=== PATIENT | male | born 1960 | race American Indian/Alaskan Native ===

== ENCOUNTER 2017-12-08 23:15 | Emergency (ER) | payer OTHER ==
[2017-12-09] MEDS ORDERED: MOTRIN PO ONE (01:18)
--- NOTE | 2017-12-09 01:58 | XRay Report ---
FINAL REPORT EXAM: XR SPINE CERVICAL 2-3V HISTORY: neck pain TECHNIQUE: Four views of the cervical spine were submitted. FINDINGS: There is mild narrowing of the C2-C3 disc. The remaining disc heights and alignment appear normal. The prevertebral soft tissues and C1-C2 articulation appear intact. IMPRESSION: Mild narrowing of the C2-C3 disc. Otherwise unremarkable exam.
--- NOTE | 2017-12-09 02:01 | XRay Report ---
FINAL REPORT EXAM: XR SPINE LUMBOSACRAL 2-3V HISTORY: low back pain TECHNIQUE: Four images were obtained of the lumbar spine. FINDINGS: The disc heights and alignment appear normal. There is no evidence of fracture. The SI joints appear normal. The soft tissues are unremarkable. IMPRESSION: Within normal limits.
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
[2017-12-09 02:34] VITALS: BP 129/82
== END 2017-12-09 02:34 | disposition home or self-care (01) ==
LOC: ED 23:15
DX: S39.012A Strain of muscle, fascia and tendon of lower back, initial encounter (principal); S13.4XXA Sprain of ligaments of cervical spine, initial encounter; I10 Essential (primary) hypertension; E11.9 Type 2 diabetes mellitus without complications; V89.2XXA Person injured in unspecified motor-vehicle accident, traffic, initial encounter; Y93.89 Activity, other specified; Y92.89 Other specified places as the place of occurrence of the external cause; Y99.8 Other external cause status
CPT/HCPCS: 72040; 72100; 99283

== ENCOUNTER 2018-04-28 11:56 | Emergency (ER) | payer MEDICARE, OTHER ==
--- NOTE | 2018-04-28 12:57 | Emergency Department Report ---
Chief Complaint: Urogenital-Male Stated Complaint: KIDNEY CHECK UP Time Seen by Provider: 04/28/18 12:56 - HPI History of Present Illness: pt co abd pain no sob no cp vss MSE completed - Exam Vital Signs: Vital Signs 04/28/18 11:59 Temperature 97.7 F Pulse Rate 66 Respiratory 18 Rate Blood Pressure 151/70 O2 Sat by Pulse 100 Oximetry MSE screening note: Focused history and physical exam performed. Due to findings the following was ordered: ED Disposition for MSE Condition: Stable
[2018-04-28 13:24] LABS: Hematocrit 29.4 % (35.5-45.6); Hemoglobin 9.6 gm/dl (11.8-15.2); Mean Corpuscular HGB Conc 33 % (32-34); Mean Corpuscular Volume 94 fl (84-94); Platelet Count 136 K/mm3 (140-440); Red Blood Count 3.13 M/mm3 (3.65-5.03); Red Cell Distribution Width 15.5 % (13.2-15.2)
[2018-04-28 13:32] LABS: Bacteria,Urine 1+ /HPF (Negative); WBC,Urine < 1.0 /HPF (0.0-6.0)
[2018-04-28 13:40] LABS: Bilirubin,Urine NEG (Negative); Blood,Urine NEG (Negative); Color,Urine Straw (Yellow); Urobilinogen,Urine < 2.0 mg/dL (<2.0)
[2018-04-28 13:49] LABS: Albumin 3.8 g/dL (3.9-5); Calcium 7.5 mg/dL (8.4-10.2)
[2018-04-28] MEDS ORDERED: KIONEX PO ONE (13:54)
--- NOTE | 2018-04-28 14:49 | Emergency Department Report ---
ED General Adult HPI - General Chief complaint: Urogenital-Male Stated complaint: KIDNEY CHECK UP Time Seen by Provider: 04/28/18 12:56 Source: patient Mode of arrival: Ambulatory Limitations: No Limitations - History of Present Illness Initial comments: 57 year old male with a past medical history diabetes, hypertension, obesity, and renal insufficiency presents to the hospital requesting a second opinion about his need for dialysis. Patient saw his primary care doctor in 3-4 months ago told that he will likely need dialysis. He apparently has an appointment scheduled this week upcoming week with his primary care doctor with plan fixture relamper referral. Patient is seeking a second opinion. He does not have any chest pain, shortness of breath, leg edema, has good urine output. Severity scale (0 -10): 0 - Related Data Previous Rx's Medication Instructions Recorded Last Taken Type Cyclobenzaprine [Flexeril] 10 mg PO QHS PRN #10 tablet 12/09/17 Unknown Rx Ibuprofen [Motrin] 600 mg PO Q8H PRN #30 tablet 12/09/17 Unknown Rx Allergies Allergy/AdvReac Type Severity Reaction Status Date / Time No Known Allergies Allergy Verified 04/28/18 11:58 ED Review of Systems ROS: Stated complaint: KIDNEY CHECK UP Other details as noted in HPI Comment: All other systems reviewed and negative ED Past Medical Hx - Past Medical History Hx Hypertension: Yes Hx Diabetes: Yes - Surgical History Additional Surgical History: right foot - Social History Smoking Status: Never Smoker Substance Use Type: None - Medications Home Medications: Home Medications Medication Instructions Recorded Confirmed Last Taken Type Cyclobenzaprine [Flexeril] 10 mg PO QHS PRN #10 tablet 12/09/17 Unknown Rx Ibuprofen [Motrin] 600 mg PO Q8H PRN #30 tablet 12/09/17 Unknown Rx ED Physical Exam - General Limitations: No Limitations - Other Other exam information: General: No limitations, patient is alert in no acute distress Head exam: Atraumatic, normocephalic Eyes exam: Normal appearance, pupils equal reactive to light, extraocular movements intact ENT: Moist mucous membrane Neck exam: Normal inspection, full range of motion, no meningismus nontender Respiratory exam: Clear to auscultation bilateral, no wheezes, rales, crackles Cardiovascular: Normal rate and rhythm Abdomen: Soft, nondistended, and nontender, with normal bowel sounds, no rebound, or guarding Extremity: Full range of motion normal inspection no deformity Back: Normal Inspection, full range of motion, no tenderness Neurologic: Alert, oriented x3, cranial nerves intact, no motor or sensory deficit Psychiatric: normal affect, normal mood Skin: Warm, dry, intact ED Course Vital Signs 04/28/18 11:59 Temperature 97.7 F Pulse Rate 66 Respiratory 18 Rate Blood Pressure 151/70 O2 Sat by Pulse 100 Oximetry - Consultations Consultation #1: 04/28/18 14:34 case d/w Dr Scott. Agrees admission is necessary 14:[address] Scott that the pt wants to s/o ama. He requests that pt stay until he comes by to talk with him first. 04/28/18 14:44 ED Medical Decision Making - Lab Data Result diagrams: 04/28/18 13:03 04/28/18 13:03 Lab Results 04/28/18 04/28/18 04/28/18 Range/Units 13:03 13:03 13:04 WBC 6.3 (4.5-11.0) K/mm3 RBC 3.13 L (3.65-5.03) M/mm3 Hgb 9.6 L (11.8-15.2) gm/dl Hct 29.4 L (35.5-45.6) % MCV 94 (84-94) fl MCH 31 (28-32) pg MCHC 33 (32-34) % RDW 15.5 H (13.2-15.2) % Plt Count 136 L (140-440) K/mm3 Sodium 139 (137-145) mmol/L Potassium 5.7 H (3.6-5.0) mmol/L Chloride 111.0 H (98-107) mmol/L Carbon Dioxide 14 L (22-30) mmol/L Anion Gap 20 mmol/L BUN 50 H (9-20) mg/dL Creatinine 6.1 H (0.8-1.5) mg/dL Estimated GFR 11 ml/min BUN/Creatinine Ratio 8 % Glucose 166 H (75-100) mg/dL Calcium 7.5 L (8.4-10.2) mg/dL Phosphorus 4.60 H (2.5-4.5) mg/dL Magnesium 1.50 L (1.7-2.3) mg/dL Total Bilirubin 0.20 (0.1-1.2) mg/dL AST 18 (5-40) units/L ALT 12 (7-56) units/L Alkaline Phosphatase 131 H (35-129) units/L Total Protein 7.1 (6.3-8.2) g/dL Albumin 3.8 L (3.9-5) g/dL Albumin/Globulin Ratio 1.2 % Urine Color Straw (Yellow) Urine Turbidity Clear (Clear) Urine pH 5.0 (5.0-7.0) Ur Specific [place] 1.006 (1.003-1.030) Urine Protein 100 mg/dl (Negative) mg/dL Urine Glucose (UA) Neg (Negative) mg/dL Urine Ketones Neg (Negative) mg/dL Urine Blood Neg (Negative) Urine Nitrite Neg (Negative) Ur Reducing Substances Not Reportable Urine Bilirubin Neg (Negative) Urine Ictotest Not Reportable Urine Urobilinogen < 2.0 (<2.0) mg/dL Ur Leukocyte Esterase Neg (Negative) Urine WBC (Auto) < 1.0 (0.0-6.0) /HPF Urine RBC (Auto) 1.0 (0.0-6.0) /HPF U Epithel Cells (Auto) < 1.0 (0-13.0) /HPF Urine Bacteria (Auto) 1+ (Negative) /HPF - EKG Data -: EKG Interpreted by Me EKG shows normal: sinus rhythm, axis (qrs 7), QRS complexes (qrsd 104), ST-T waves (flat lat t waves with t inv, possible peak ant t waves) Rate: normal - EKG Data When compared to previous EKG there are: previous EKG unavailable - Medical Decision Making I spoke to patient importance of admission and initiation of dialysis given metabolic acidosis, renal failure, and hyperkalemia. Patient declined admission. Dr Scott also spoke to patient and admission was still declined. In the ED patient was treated with Kayexalate 45 g and Lasix 80 mg IV to initiate elimination of potassium. Patient warned of risks of sudden arrhythmia and . He states he plans to follow up with doctor at [place]. Dr Scott also provided this information for option for nephrology follow up - Differential Diagnosis renal failure, hyperkalemia, renal insufficiency Critical Care Time: No Critical care attestation.: If time is entered above; I have spent that time in minutes in the direct care of this critically ill patient, excluding procedure time. ED Disposition Clinical Impression: Chronic renal failure, Hyperkalemia, Metabolic acidosis Disposition: DC-01 TO HOME OR SELFCARE Is pt being admited?: No Does the pt Need Aspirin: No Condition: Stable Instructions: End-Stage Kidney Disease (ED) Additional Instructions: Your signing out AGAINST MEDICAL ADVICE. You were evaluated by a kidney specialist in the ER who recommended emergent dialysis due to your elevated potassium level. High potassium level can lead to beat irregularities and sudden . You have chosen to follow up with your doctor as an outpatient. Return if symptoms worsen as indicated by your discharge instructions. Referrals: BRIDGER SCOTT MD [Staff Physician] - ERIN your, doctor [Other] - ERIN Forms: AMA Form Time of Disposition: 17:31
[2018-04-28] MEDS ORDERED: LASIX IV ONE (15:32)
--- NOTE | 2018-04-28 15:45 | Consultation ---
History of Present Illness - Reason for Consult Consult date: 04/28/18 end stage renal disease, hyperkalemia, metabolic acidosis - History of Present Illness The patient is a 57 YO with history significant for Obesity, DM-2(33 yrs), HTN(23 yrs), HLD and CKD who presented to ER for second opinion regarding his kidney disease. He was recently seen by a Merchandising Stock Associate at [facility] and recommended to start on hemodialysis. Per patient he was scheduled to get dialysis catheter at [facility] on tuesday and to initiate hemodialysis. He wants to have outpatient hemodialysis setup closed to home. He c/o fatigue, bilateral leg swelling, intermittent sob, N & V. Past History Past Medical History: diabetes, hypertension, hyperlipidemia, renal failure Medications and Allergies Allergies Allergy/AdvReac Type Severity Reaction Status Date / Time No Known Allergies Allergy Verified 04/28/18 11:58 Home Medications Medication Instructions Recorded Confirmed Last Taken Type Cyclobenzaprine [Flexeril] 10 mg PO QHS PRN #10 tablet 12/09/17 Unknown Rx Ibuprofen [Motrin] 600 mg PO Q8H PRN #30 tablet 12/09/17 Unknown Rx Review of Systems Constitutional: weight gain, no weight loss, no fever, no chills, no anorexia, no fatigue, no weakness, no poor appetite Cardiovascular: edema, shortness of breath, dyspnea on exertion, high blood pressure, leg edema, no chest pain, no orthopnea, no palpitations, no syncope, no lightheadedness Respiratory: shortness of breath, dyspnea on exertion, no cough, no sleep apnea, no home oxygen Gastrointestinal: nausea, vomiting, no abdominal pain, no diarrhea, no hematemesis, no melena, no jaundice Genitourinary Male: no dysuria, no hematuria, no kidney stones Rectal: no bleeding Musculoskeletal: no prior amputations Integumentary: no rash, no redness, no sores, no wounds, no jaundice Neurological: no paralysis, no weakness, no seizures, no syncope, no change in speech, no change in mentation, no confusion, no memory loss, no double vision, no loss of vision Endocrine: weight change Exam - Vital Signs Vital signs: Vital Signs Temp Pulse Resp BP Pulse Ox 97.7 F 66 18 151/70 100 04/28/18 11:59 04/28/18 11:59 04/28/18 11:59 04/28/18 11:59 04/28/18 11:59 - General Appearance General appearance: well-developed, well-nourished, appears stated age, other (not in distress, morbidly obese) EENT: ATNC, PERRL, mucous membranes moist, hearing intact, vision intact Neck: Present: neck supple, trachea midline Respiratory: Clear to Ascultation, Decreased Breath Sounds Heart: regular, S1S2 Gastrointestinal: Present: normoactive bowel sounds, obese. Absent: tenderness, distended Integumentary: no rash Neurologic: no focal deficit, no asterixis, alert and oriented x3 Musculoskeletal: Present: other (2+ edema of both LEs) Results - Lab Results 04/28/18 13:03 04/28/18 13:03 Most recent lab results Calcium 7.5 mg/dL (8.4-10.2) L 04/28/18 13:03 Phosphorus 4.60 mg/dL (2.5-4.5) H 04/28/18 13:03 Magnesium 1.50 mg/dL (1.7-2.3) L 04/28/18 13:03 Assessment and Plan 1. ESRD: Based on the history and presentation the kidney disease has progressed to ESRD. Some of the symptoms are likely due to uremia / advanced kidney disease. Patient needs hemodialysis today due to hyperkalemia, metabolic acidosis, volume overload and uremia. Recommended hospital admission and treatment of ESRD including hemodialysis. Rayne explained the dangers of delaying treatment. He doesn't want to get admitted and wants to leave AMA. He verbalized risks involved. 2. Hyperkalemia: Kayexalate and Lasix. We wouldn't be able to give any Insulin-dextrose at this time since patient is not staying in the hospital and the risk of hypoglycemia. 3. Metabolic acidosis: Needs hemodialysis. 4. Anemia: Likely 2/2 ESRD. 5. HTN. 6. DM-2.
[2018-04-28 18:13] VITALS: BP 145/80
== END 2018-04-28 17:49 | disposition home or self-care (01) ==
LOC: ED 11:56
DX: I12.9 Hypertensive chronic kidney disease with stage 1 through stage 4 chronic kidney disease, or unspecified chronic kidney disease (principal); E11.22 Type 2 diabetes mellitus with diabetic chronic kidney disease; N18.9 Chronic kidney disease, unspecified; E87.5 Hyperkalemia; E87.2 Acidosis
CPT/HCPCS: 36415; 80053; 81001; 83735; 84100; 85027; 93005; 93010; 96374; 99283; J1940

== ENCOUNTER 2018-10-24 01:24 | Emergency (ER) | payer MEDICARE ==
[2018-10-24 02:07] LABS: Basophils # (Auto) 0.1 K/mm3 (0.0-0.1); Basophils % (Auto) 0.8 % (0.0-1.8); Eosinophils % (Auto) 0.1 % (0.0-4.3); Hematocrit 33.2 % (35.5-45.6); Hemoglobin 10.8 gm/dl (11.8-15.2); Lymphocytes # (Auto) 0.9 K/mm3 (1.2-5.4); Lymphocytes % (Auto) 13.1 % (13.4-35.0); Mean Corpuscular HGB Conc 33 % (32-34); Mean Corpuscular Volume 95 fl (84-94); Monocytes # (Auto) 0.6 K/mm3 (0.0-0.8); Monocytes % (Auto) 8.5 % (0.0-7.3); Platelet Count 304 K/mm3 (140-440); Red Blood Count 3.51 M/mm3 (3.65-5.03); Red Cell Distribution Width 16.7 % (13.2-15.2)
[2018-10-24 02:32] LABS: Albumin 3.7 g/dL (3.9-5); Calcium 8.9 mg/dL (8.4-10.2)
[2018-10-24 03:04] LABS: Mucus,Urine FEW /HPF
[2018-10-24 03:26] LABS: Bilirubin,Urine NEG (Negative); Blood,Urine SM (Negative); Color,Urine Yellow (Yellow); Urobilinogen,Urine < 2.0 mg/dL (<2.0)
[2018-10-24] MEDS ORDERED: ZOFRAN ONE ×2 (05:33→07:52)
[2018-10-24] MEDS ORDERED: ZOFRAN IV ONE ×2 (05:36→06:22)
[2018-10-24] MEDS ORDERED: NACL 0.9% 500 ML 500 ML IV ONE (06:22)
[2018-10-24] MEDS ORDERED: PROTONIX IV ONE ×2 (06:37→07:52)
[2018-10-24] MEDS ORDERED: LIDOCAINE VISCOUS 2% PO ONE (06:38)
[2018-10-24] MEDS ORDERED: ALUM-MAG HYDROX-SIMETH 200-200-20MG/5ML PO ONE (06:38)
--- NOTE | 2018-10-24 07:19 | Emergency Department Report ---
ED N/V/D HPI - General Chief complaint: Abdominal Pain Stated complaint: STOMACH PAIN Time Seen by Provider: 10/24/18 06:07 Source: patient Mode of arrival: Ambulatory Limitations: No Limitations - History of Present Illness Initial comments: 58-year-old male with a past medical history of end-stage renal disease on dialysis, diabetes, recent amputation of the toe of the left foot, and hypertension presents for complaints of abdominal pain, nausea, vomiting and diarrhea for the past 4 days. Patient states his symptoms started after taking insulin Tuesday and Tuesday. He has not taken any insulin since has continued to monitor his sugars. He complains of frequent vomiting, 2 episodes of diarrhea today, and epigastric discomfort feels like heartburn. He denies melena, hematochezia, hematemesis, or fever. As per medical record review patient was recently admitted here and of September for abdominal pain and gangrene of his left foot toe with osteomyelitis. Patient received cholecystectomy and amputation during this visit. Patient completed his course of prescribed Augmentin ending 10/12/2018. Osteolysis with yesterday. Patient follows with Minor - Related Data Previous Rx's Medication Instructions Recorded Last Taken Type Ibuprofen [Motrin] 600 mg PO Q8H PRN #30 tablet 12/09/17 09/22/18 Rx Ondansetron [Zofran Odt] 4 mg PO Q8HR PRN #15 tab.rapdis 09/26/18 Unknown Rx Amoxicillin/K Clav Tab [Augmentin 1 tab PO Q12HR #14 tab 10/08/18 Unknown Rx 875 mg] Cyclobenzaprine [Flexeril 10 MG 10 mg PO QHS PRN #10 tablet 10/08/18 Unknown Rx TAB] Epoetin Chidi 20,000 Unit [Procrit] 20,000 unit SUB-Q TETE PRN vial 10/08/18 Unknown Rx Gabapentin [Neurontin] 300 mg PO Q8H #90 capsule 10/08/18 Unknown Rx HYDROcodone/APAP 5-325 [[place] 1 each PO Q6HR PRN #30 tablet 10/08/18 Unknown Rx 5-325 mg TAB] Insulin Glargine [Lantus VIAL] 10 units SUB-Q QHS #1 pen 10/08/18 Unknown Rx Megestrol [Megace] 40 mg PO QDAY #30 tablet 10/08/18 Unknown Rx Pantoprazole [Protonix TAB] 40 mg PO QDAY #30 tablet 10/08/18 Unknown Rx Ondansetron [Zofran Odt] 4 mg PO Q8HR PRN #20 tab.rapdis 10/24/18 Unknown Rx Allergies Allergy/AdvReac Type Severity Reaction Status Date / Time No Known Allergies Allergy Verified 09/27/18 15:18 ED Review of Systems ROS: Stated complaint: STOMACH PAIN Other details as noted in HPI Comment: All other systems reviewed and negative ED Past Medical Hx - Past Medical History Previous Medical History?: Yes Hx Hypertension: Yes Hx Heart Attack/AMI: No Hx Diabetes: Yes Hx Liver Disease: No Hx Renal Disease: Yes ([id number]-[id number]-F) Hx Seizures: No Additional medical history: Dialysis - Surgical History Past Surgical History?: Yes Hx Cholecystectomy: Yes (09/2018) Additional Surgical History: right foot, Left foot 4th toe amputation 2018 - Social History Smoking Status: Never Smoker - Medications Home Medications: Home Medications Medication Instructions Recorded Confirmed Last Taken Type Ibuprofen [Motrin] 600 mg PO Q8H PRN #30 tablet 12/09/17 09/22/18 Rx Ondansetron [Zofran Odt] 4 mg PO Q8HR PRN #15 tab.rapdis 09/26/18 Unknown Rx Amoxicillin/K Clav Tab [Augmentin 1 tab PO Q12HR #14 tab 10/08/18 Unknown Rx 875 mg] Cyclobenzaprine [Flexeril 10 MG 10 mg PO QHS PRN #10 tablet 10/08/18 Unknown Rx TAB] Epoetin Chidi 20,000 Unit [Procrit] 20,000 unit SUB-Q TETE PRN vial 10/08/18 Unknown Rx Gabapentin [Neurontin] 300 mg PO Q8H #90 capsule 10/08/18 Unknown Rx HYDROcodone/APAP 5-325 [[place] 1 each PO Q6HR PRN #30 tablet 10/08/18 Unknown Rx 5-325 mg TAB] Insulin Glargine [Lantus VIAL] 10 units SUB-Q QHS #1 pen 10/08/18 Unknown Rx Megestrol [Megace] 40 mg PO QDAY #30 tablet 10/08/18 Unknown Rx Pantoprazole [Protonix TAB] 40 mg PO QDAY #30 tablet 10/08/18 Unknown Rx Ondansetron [Zofran Odt] 4 mg PO Q8HR PRN #20 tab.rapdis 10/24/18 Unknown Rx ED Physical Exam - General Limitations: No Limitations - Other Other exam information: General: no acute distress Head: Atraumatic, normocephalic Eyes: Normal appearance, pupils equal and reactive to light, extraocular movements intact, nonicteric sclera ENT: normal oropharynx Neck: Normal appearance, no stridor, no meningismus, no midline tenderness. Cardiovascular: Resting heart rate 100 and increases to 120 when sitting up in the bed. Regular rate and rhythm Chest: Clear to auscultation, no wheezes, rales, or crackles, dialysis access to right chest wall Abdomen: nondistended, soft, nontender, no rebound or guarding. Epigastric tenderness. Healing umbilical surgical wound Extremity: Normal appearance, no deformity, full range of motion Neuro: Alert and oriented 3, clear speech, no gross motor or sensory deficit Skin: No warmth, erythema ED Course Vital Signs 10/24/18 10/24/18 10/24/18 01:40 05:14 06:14 Temperature 98.2 F 98.7 F Pulse Rate 121 H 70 101 H Respiratory 22 15 16 Rate Blood Pressure 175/126 Blood Pressure 172/93 172/84 [Left] O2 Sat by Pulse 100 99 97 Oximetry 10/24/18 08:10 Temperature 99.0 F Pulse Rate 99 H Respiratory 16 Rate Blood Pressure Blood Pressure 186/99 [Left] O2 Sat by Pulse 100 Oximetry - Reevaluation(s) Reevaluation #1: 10/24/18 15:35 ct reviewed and naf, therefore no call back needed. ED Medical Decision Making - Lab Data Result diagrams: 10/24/18 01:51 10/24/18 01:51 Lab Results 10/24/18 10/24/18 10/24/18 Range/Units 01:51 01:51 02:26 WBC 6.6 (4.5-11.0) K/mm3 RBC 3.51 L (3.65-5.03) M/mm3 Hgb 10.8 L (11.8-15.2) gm/dl Hct 33.2 L (35.5-45.6) % MCV 95 H (84-94) fl MCH 31 (28-32) pg MCHC 33 (32-34) % RDW 16.7 H (13.2-15.2) % Plt Count 304 (140-440) K/mm3 Lymph % (Auto) 13.1 L (13.4-35.0) % [place] % (Auto) 8.5 H (0.0-7.3) % Eos % (Auto) 0.1 (0.0-4.3) % Baso % (Auto) 0.8 (0.0-1.8) % Lymph # 0.9 L (1.2-5.4) K/mm3 [place] # 0.6 (0.0-0.8) K/mm3 Eos # 0.0 (0.0-0.4) K/mm3 Baso # 0.1 (0.0-0.1) K/mm3 Seg Neutrophils % 77.5 H (40.0-70.0) % Seg Neutrophils # 5.1 (1.8-7.7) K/mm3 Sodium 135 L (137-145) mmol/L Potassium 3.3 L (3.6-5.0) mmol/L Chloride 92.5 L (98-107) mmol/L Carbon Dioxide 20 L (22-30) mmol/L Anion Gap 26 mmol/L BUN 28 H (9-20) mg/dL Creatinine 5.6 H (0.8-1.5) mg/dL Estimated GFR 13 ml/min BUN/Creatinine Ratio 5 % Glucose 214 H (75-100) mg/dL Calcium 8.9 (8.4-10.2) mg/dL Total Bilirubin 0.50 (0.1-1.2) mg/dL AST 33 (5-40) units/L ALT 22 (7-56) units/L Alkaline Phosphatase 144 H (35-129) units/L Total Protein 8.9 H (6.3-8.2) g/dL Albumin 3.7 L (3.9-5) g/dL Albumin/Globulin Ratio 0.7 % Lipase 22 (13-60) units/L Urine Color Yellow (Yellow) Urine Turbidity Slightly-cloudy (Clear) Urine pH 5.0 (5.0-7.0) Ur Specific [place] 1.016 (1.003-1.030) Urine Protein 100 mg/dl (Negative) mg/dL Urine Glucose (UA) Neg (Negative) mg/dL Urine Ketones Neg (Negative) mg/dL Urine Blood Sm (Negative) Urine Nitrite Neg (Negative) Ur Reducing Substances Not Reportable Urine Bilirubin Neg (Negative) Urine Ictotest Not Reportable Urine Urobilinogen < 2.0 (<2.0) mg/dL Ur Leukocyte Esterase Neg (Negative) Urine WBC (Auto) 2.0 (0.0-6.0) /HPF Urine RBC (Auto) 2.0 (0.0-6.0) /HPF U Epithel Cells (Auto) 1.0 (0-13.0) /HPF Urine Mucus Few /HPF - EKG Data -: EKG Interpreted by Me EKG shows normal: sinus rhythm, axis (qrs -1), QRS complexes (qrsd 96), ST-T waves (no stemi) Rate: tachycardia (105) - EKG Data When compared to previous EKG there are: no significant change - Radiology Data Radiology results: report reviewed (abd xray: naf) CT ABDOMEN AND PELVIS WITHOUT CONTRAST HISTORY: Nausea, vomiting and diarrhea. Recent cholecystectomy. COMPARISON: 09/26/2018 TECHNIQUE: Axial CT images were obtained through the abdomen and pelvis without IV contrast. Sagittal and coronal reformatted images. All CT scans at this location are performed using CT dose reduction for ALARA by means of automated exposure control. FINDINGS: This examination is just presented to me or interpretation secondary to t echnical factors at the hospital. CT ABDOMEN: Lung Bases: Clear. Liver: No significant abnormality. Biliary: Cholecystectomy. No biliary dilatation. Spleen: No significant abnormality. Unenlarged. Pancreas: No significant abnormality. Adrenals: No significant abnormality. Kidneys: No significant abnormality. Lymphatics: No lymphadenopathy. Vasculature: No significant abnormality. Bowel/Peritoneum: No significant abnormality. No free air. No free fluid. Normal appendix. CT PELVIS: : No significant abnormality. Osseous Structures: No significant abnormality. Additional Findings: Small umbilical hernia containing fat. IMPRESSION: No significant abnormality. Cholecystectomy. Small umbilical hernia containing fat. - Medical Decision Making She was treated with IV fluids due to orthostatic tachycardia, Maalox, and viscous lidocaine as well as IV Protonix with improvement in symptoms. Patient needed to leave due to to go to a scheduled appointment and therefore signed out AMA prior to CAT scan results. abdominal X-ray studies are unremarkable. - Differential Diagnosis dehydration, gastroenteritis, C. difficile, adverse medication reaction Critical care attestation.: If time is entered above; I have spent that time in minutes in the direct care of this critically ill patient, excluding procedure time. ED Disposition Clinical Impression: GERD (gastroesophageal reflux disease), Gastroenteritis, ESRD (end stage renal disease) on dialysis Disposition: LEFT AGAINST MED ADVICE Is pt being admited?: No Does the pt Need Aspirin: No Condition: Stable Instructions: Gastroenteritis (ED), Gastroesophageal Reflux Disease (ED) Additional Instructions: Take the medication is prescribed. Follow-up with your doctor or the doctor/clinic provided. Return if symptoms worsen as indicated by your discharge instructions. You are signing an AGAINST MEDICAL ADVICE form because relieving prior to your CAT scan results. Prescriptions: Ondansetron [Zofran Odt] 4 mg PO Q8HR PRN #20 tab.rapdis PRN Reason: Nausea And Vomiting Referrals: [facility] [Other] - 3-5 Days WILLIE JAIMES MD [Staff Physician] - 3-5 Days (GI specialist) Forms: AMA Form Time of Disposition: 09:20
[2018-10-24] MEDS ORDERED: ALUM-MAG HYDROX-SIMETH 200-200-20MG/5ML ONE (07:52)
[2018-10-24] MEDS ORDERED: LIDOCAINE VISCOUS 2% ONE (07:52)
[2018-10-24 08:15] VITALS: BP 186/99
--- NOTE | 2018-10-24 15:04 | Cat Scan Report ---
CT ABDOMEN AND PELVIS WITHOUT CONTRAST HISTORY: Nausea, vomiting and diarrhea. Recent cholecystectomy. COMPARISON: 09/26/2018 TECHNIQUE: Axial CT images were obtained through the abdomen and pelvis without IV contrast. Sagittal and coronal reformatted images. All CT scans at this location are performed using CT dose reduction for ALARA by means of automated exposure control. FINDINGS: This examination is just presented to me or interpretation secondary to technical factors at the hosp [facility]. CT ABDOMEN: Lung Bases: Clear. Liver: No significant abnormality. Biliary: Cholecystectomy. No biliary dilatation. Spleen: No significant abnormality. Unenlarged. Pancreas: No significant abnormality. Adrenals: No significant abnormality. Kidneys: No significant abnormality. Lymphatics: No lymphadenopathy. Vasculature: No significant abnormality. Bowel/Peritoneum: No significant abnormality. No free air. No free fluid. Normal appendix. CT PELVIS: : No significant abnormality. Osseous Structures: No significant abnormality. Additional Findings: Small umbilical hernia containing fat. IMPRESSION: No significant abnormality. Cholecystectomy. Small umbilical hernia containing fat. Signer Name: Kilo Haro Jr, MD Signed: 10/24/2018 3:00 PM Workstation Name: [id number]
--- NOTE | 2018-10-25 15:05 | XRay Report ---
ABDOMEN 2 VIEW(S) INDICATION / CLINICAL INFORMATION: abd pain since Tuesday. n/v constipation . COMPARISON: CT abdomen from 09/26/2018 FINDINGS: TUBES / LINES: None. BOWEL GAS PATTERN: No significant abnormality. FREE AIR / EXTRALUMINAL GAS: None seen. ADDITIONAL FINDINGS: No significant additional findings. IMPRESSION: 1. No significant abnormality. Signer Name: Thee Briscoe MD Signed: 10/24/2018 4:47 AM Workstation Name: [employer]
== END 2018-10-24 09:25 | disposition left against medical advice (07) ==
LOC: ED 01:24
DX: K52.9 Noninfective gastroenteritis and colitis, unspecified (principal); K21.9 Gastro-esophageal reflux disease without esophagitis; I12.0 Hypertensive chronic kidney disease with stage 5 chronic kidney disease or end stage renal disease; E11.22 Type 2 diabetes mellitus with diabetic chronic kidney disease; N18.6 End stage renal disease; Z99.2 Dependence on renal dialysis; Z90.49 Acquired absence of other specified parts of digestive tract; Z79.899 Other long term (current) drug therapy; Z79.4 Long term (current) use of insulin; Z89.422 Acquired absence of other left toe(s)
CPT/HCPCS: 36415; 74019; 74176; 80053; 81001; 83690; 85025; 93005; 93010; 96374; 99284; C9113; J2405

== ENCOUNTER 2018-12-11 08:00 | Outpatient (CLI) | payer MEDICARE ==
[2018-12-11] MEDS ORDERED: SILVER NITRATE APPLICATOR 1 EA TP ONE (08:30)
[2018-12-11] MEDS ORDERED: LIDOCAINE (4%) 40 MG/ML TOPICAL SOLN 50 ML BOTTLE TP ONE (08:30)
== END 2018-12-11 08:01 | disposition home or self-care (01) ==
LOC: WOUND 08:00
PROVIDERS: ATTEND Surgery
DX: T87.89 Other complications of amputation stump (principal); E11.621 Type 2 diabetes mellitus with foot ulcer; L97.521 Non-pressure chronic ulcer of other part of left foot limited to breakdown of skin; E11.69 Type 2 diabetes mellitus with other specified complication; M86.9 Osteomyelitis, unspecified; E11.40 Type 2 diabetes mellitus with diabetic neuropathy, unspecified; E11.22 Type 2 diabetes mellitus with diabetic chronic kidney disease; I12.0 Hypertensive chronic kidney disease with stage 5 chronic kidney disease or end stage renal disease; N18.6 End stage renal disease; Y83.5 Amputation of limb(s) as the cause of abnormal reaction of the patient, or of later complication, without mention of misadventure at the time of the procedure

== ENCOUNTER 2018-12-14 08:01 | Outpatient (CLI) | payer MEDICARE | END 2018-12-14 08:02 | disposition home or self-care (01) | LOC: WOUND 08:01 | PROVIDERS: ATTEND Surgery | DX: T87.89 Other complications of amputation stump (principal); E11.621 Type 2 diabetes mellitus with foot ulcer; L97.521 Non-pressure chronic ulcer of other part of left foot limited to breakdown of skin; E11.69 Type 2 diabetes mellitus with other specified complication; M86.9 Osteomyelitis, unspecified; E11.40 Type 2 diabetes mellitus with diabetic neuropathy, unspecified; E11.22 Type 2 diabetes mellitus with diabetic chronic kidney disease; I12.0 Hypertensive chronic kidney disease with stage 5 chronic kidney disease or end stage renal disease; N18.6 End stage renal disease; Y83.5 Amputation of limb(s) as the cause of abnormal reaction of the patient, or of later complication, without mention of misadventure at the time of the procedure | CPT/HCPCS: 82962; G0277; 99183 ==

== ENCOUNTER 2018-12-15 08:01 | Outpatient (CLI) | payer MEDICARE | END 2018-12-15 08:02 | disposition home or self-care (01) | LOC: WOUND 08:01 | PROVIDERS: ATTEND Surgery | DX: T87.89 Other complications of amputation stump (principal); E11.621 Type 2 diabetes mellitus with foot ulcer; L97.521 Non-pressure chronic ulcer of other part of left foot limited to breakdown of skin; E11.69 Type 2 diabetes mellitus with other specified complication; M86.9 Osteomyelitis, unspecified; E11.40 Type 2 diabetes mellitus with diabetic neuropathy, unspecified; E11.22 Type 2 diabetes mellitus with diabetic chronic kidney disease; I12.0 Hypertensive chronic kidney disease with stage 5 chronic kidney disease or end stage renal disease; N18.6 End stage renal disease; Y83.5 Amputation of limb(s) as the cause of abnormal reaction of the patient, or of later complication, without mention of misadventure at the time of the procedure | CPT/HCPCS: 82962; 99183; G0277 ==

== ENCOUNTER 2019-10-31 07:45 | Inpatient (IN) | payer MEDICARE ==
--- NOTE | 2019-10-31 08:36 | XRay Report ---
CHEST 2 VIEWS INDICATION: Chest Pain. COMPARISON: 09/27/2018 FINDINGS: Support devices: None. Right IJ permacath has been removed. Heart: Borderline heart size. Lungs/pleura: Mild central pulmonary venous congestion is suspected. The lungs are clear otherwise. N o evidence for pneumonia, CHF or pneumothorax. Additional findings: None. IMPRESSION: Mild central pulmonary venous congestion. Borderline heart size. Signer Name: Kilo Haro Jr, MD Signed: 10/31/2019 8:31 AM Workstation Name: [id number]
[2019-10-31 09:39] LABS: Basophils % (Auto) 0.6 % (0.0-1.8); Eosinophils # (Auto) 0.1 K/mm3 (0.0-0.4); Eosinophils % (Auto) 1.7 % (0.0-4.3); Hemoglobin 8.9 gm/dl (11.8-15.2); Lymphocytes # (Auto) 0.7 K/mm3 (1.2-5.4); Lymphocytes % (Auto) 9.4 % (13.4-35.0); Mean Corpuscular HGB Conc 33 % (32-34); Mean Corpuscular Volume 97 fl (84-94); Monocytes # (Auto) 0.7 K/mm3 (0.0-0.8); Monocytes % (Auto) 9.1 % (0.0-7.3); Platelet Count 141 K/mm3 (140-440); Red Blood Count 2.77 M/mm3 (3.65-5.03); Red Cell Distribution Width 17.5 % (13.2-15.2)
[2019-10-31 10:03] LABS: Calcium 7.8 mg/dL (8.4-10.2)
[2019-10-31 11:01] LABS: Chol/HDL Ratio 2.75 %
[2019-10-31] MEDS ORDERED: ALBUTEROL 2.5 MG/3 ML NEBU IH ONE (11:45)
[2019-10-31] MEDS ORDERED: INSULIN REGULAR, HUMAN 100 UNIT/ML 3ML VIAL IV ONE (11:45)
[2019-10-31] MEDS ORDERED: DEXTROSE 50% IN WATER (25GM) 50 ML SYRINGE IV ONE (11:45)
[2019-10-31] MEDS ORDERED: SODIUM BICARB 8.4% 50 MEQ/50 ML SYRINGE IV ONE (11:48)
--- NOTE | 2019-10-31 11:52 | Emergency Department Report ---
ED Shortness of Breath HPI - General Chief Complaint: Dyspnea/Respdistress Stated Complaint: dialysis Time Seen by Provider: 10/31/19 11:39 Source: patient Mode of arrival: Ambulatory Limitations: No Limitations - History of Present Illness Initial Comments: Patient is 59 years old male with history of end-stage renal disease on hemodialysis, hypertension and diabetes. Patient stated that he was recently discharged [place]. Patient stated that he was getting his dialysis over there but since he left the present approximately 3 weeks ago he did not have any dialysis. Patient is complaining of shortness of breath and generalized weakness and nausea but no vomiting. Patient denied any chest pain, fever chills or cough. Patient has a left arm AV fistula. MD Complaint: shortness of breath - Related Data Previous Rx's Medication Instructions Recorded Last Taken Type Ibuprofen [Motrin] 600 mg PO Q8H PRN #30 tablet 12/09/17 09/22/18 Rx Ondansetron [Zofran Odt] 4 mg PO Q8HR PRN #15 tab.rapdis 09/26/18 Unknown Rx Amoxicillin/K Clav Tab [Augmentin 1 tab PO Q12HR #14 tab 10/08/18 Unknown Rx 875 mg] Cyclobenzaprine [Flexeril 10 MG 10 mg PO QHS PRN #10 tablet 10/08/18 Unknown Rx TAB] Epoetin Chidi 20,000 Unit [Procrit] 20,000 unit SUB-Q TETE PRN vial 10/08/18 Unknown Rx Gabapentin 300 mg PO Q8H #90 capsule 10/08/18 Unknown Rx HYDROcodone/APAP 5-325 [[place] 1 each PO Q6HR PRN #30 tablet 10/08/18 Unknown Rx 5-325 mg TAB] Insulin Glargine [Lantus VIAL] 10 units SUB-Q QHS #1 pen 10/08/18 Unknown Rx Pantoprazole [Protonix TAB] 40 mg PO QDAY #30 tablet 10/08/18 Unknown Rx megestroL [Megestrol] 40 mg PO QDAY #30 tablet 10/08/18 Unknown Rx Ondansetron [Zofran Odt] 4 mg PO Q8HR PRN #20 tab.rapdis 10/24/18 Unknown Rx Allergies Allergy/AdvReac Type Severity Reaction Status Date / Time No Known Allergies Allergy Verified 09/27/18 15:18 ED Review of Systems ROS: Stated complaint: dialysis Other details as noted in HPI Comment: All other systems reviewed and negative Constitutional: denies: chills, fever Respiratory: orthopnea, shortness of breath, SOB with exertion, SOB at rest. denies: cough, wheezing Cardiovascular: denies: chest pain, palpitations Gastrointestinal: denies: abdominal pain, nausea, vomiting Musculoskeletal: denies: back pain ED Past Medical Hx - Past Medical History Hx Hypertension: Yes Hx Heart Attack/AMI: No Hx Diabetes: Yes Hx Liver Disease: No Hx Renal Disease: Yes (ESRD-M-W-F) Hx Seizures: No Additional medical history: Dialysis - Surgical History Hx Cholecystectomy: Yes (09/2018) Additional Surgical History: right foot, Left foot 4th toe amputation 2018 - Social History Smoking Status: Never Smoker - Medications Home Medications: Home Medications Medication Instructions Recorded Confirmed Last Taken Type Ibuprofen [Motrin] 600 mg PO Q8H PRN #30 tablet 12/09/17 09/22/18 Rx Ondansetron [Zofran Odt] 4 mg PO Q8HR PRN #15 tab.rapdis 09/26/18 Unknown Rx Amoxicillin/K Clav Tab [Augmentin 1 tab PO Q12HR #14 tab 10/08/18 Unknown Rx 875 mg] Cyclobenzaprine [Flexeril 10 MG 10 mg PO QHS PRN #10 tablet 10/08/18 Unknown Rx TAB] Epoetin Chidi 20,000 Unit [Procrit] 20,000 unit SUB-Q TETE PRN vial 10/08/18 Unknown Rx Gabapentin 300 mg PO Q8H #90 capsule 10/08/18 Unknown Rx HYDROcodone/APAP 5-325 [[place] 1 each PO Q6HR PRN #30 tablet 10/08/18 Unknown Rx 5-325 mg TAB] Insulin Glargine [Lantus VIAL] 10 units SUB-Q QHS #1 pen 10/08/18 Unknown Rx Pantoprazole [Protonix TAB] 40 mg PO QDAY #30 tablet 10/08/18 Unknown Rx megestroL [Megestrol] 40 mg PO QDAY #30 tablet 10/08/18 Unknown Rx Ondansetron [Zofran Odt] 4 mg PO Q8HR PRN #20 tab.rapdis 10/24/18 Unknown Rx ED Physical Exam - General Limitations: No Limitations General appearance: alert, in distress (Moderate) - Head Head exam: Present: atraumatic, normocephalic, normal inspection - Eye Eye exam: Present: normal appearance, PERRL - ENT ENT exam: Present: normal exam, normal orophraynx, mucous membranes moist - Neck Neck exam: Present: normal inspection, full ROM. Absent: tenderness, meningismus, lymphadenopathy, thyromegaly - Respiratory Respiratory exam: Present: normal lung sounds bilaterally - Cardiovascular Cardiovascular Exam: Present: tachycardia, normal heart sounds - GI/Abdominal GI/Abdominal exam: Present: soft, normal bowel sounds. Absent: distended, tenderness, guarding, rebound, rigid, organomegaly, mass, bruit, pulsatile mass, hernia - Extremities Exam Extremities exam: Present: full ROM, normal capillary refill. Absent: calf tenderness - Back Exam Back exam: Present: normal inspection, full ROM. Absent: CVA tenderness (R), CVA tenderness (L) - Neurological Exam Neurological exam: Present: alert, oriented X3, CN II-XII intact, normal gait, reflexes normal. Absent: motor sensory deficit - Psychiatric Psychiatric exam: Present: normal mood - Skin Skin exam: Present: warm, intact, normal color ED Course Vital Signs 10/31/19 07:52 Temperature 97.9 F Pulse Rate 104 H Respiratory 24 Rate Blood Pressure 182/87 O2 Sat by Pulse 100 Oximetry ED Medical Decision Making - Lab Data Result diagrams: 10/31/19 09:24 10/31/19 09:24 - EKG Data -: EKG Interpreted by Wa - EKG Data Interpretation: no acute changes - Radiology Data Radiology results: report reviewed Atrial fibrillation with no RVR. - Medical Decision Making Patient is 59 years old male with history of end-stage renal disease on hemodialysis, hypertension and diabetes. Patient stated that he was recently [place]. Patient stated that he was getting his dialysis over there but since he left the present approximately 3 weeks ago he did not have any dialysis. Patient is complaining of shortness of breath and generalized weakness and nausea but no vomiting. Patient denied any chest pain, fever chills or cough. Patient has a left arm AV fistula. Patient found to have a potassium of 6.5. Patient immediately received calcium chloride 1 g IV, albuterol, dextrose and insulin and sodium bicarbonate. EKG showed atrial fibrillation with no RVR. Chest x-ray showed pulmonary edema. 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 I discussed the patient with Dr. Kris Jiang he advised to admit the patient to Dr. Dixon for further management. Critical Care Time: Yes Critical care time in (mins) excluding proc time.: 30 Critical care attestation.: If time is entered above; I have spent that time in minutes in the direct care of this critically ill patient, excluding procedure time. ED Disposition Clinical Impression: Acute hyperkalemia, End-stage renal disease needing dialysis, Volume overload, Shortness of breath Disposition: OP ADMIT IP TO THIS HOSP Is pt being admited?: Yes Condition: Stable Referrals: GIBSON IZAGUIRRE MD [Primary Care Provider] - 3-5 Days
[2019-10-31] MEDS ORDERED: EPOETIN ALFA 10,000 UNIT/1 ML INJ SUB-Q PRN (11:59)
[2019-10-31] MEDS ORDERED: SODIUM CHLORIDE 0.9% 100 ML IV PRN (11:59)
[2019-10-31] MEDS ORDERED: CALCIUM CHLORIDE 1,000 MG in SODIUM CHLORIDE 0.9% 100 ML IV ONE (12:15)
[2019-10-31] MEDS ORDERED: INSULIN REGULAR, HUMAN 100 UNITS/1 ML ONE (12:29)
--- NOTE | 2019-10-31 12:33 | History and Physical Report ---
History of Present Illness Date of examination: 10/31/19 Date of admission: 10/31/19 Chief complaint: need HD History of present illness: Patient is 59 years old male with history of end-stage renal disease on hemodialysis, hypertension and diabetes presented to ER for dialysis need. Patient stated that he was recently discharged from [facility] on 10/01/19. Patient stated that he was getting his dialysis over there but since he left the retirement approximately 3 weeks ago he did not have any regular dialysis. He currently doesnot have any outpt HD set up. He went to other hospitals to get HD interim. Patient is complaining of shortness of breath and generalized weakness and nausea but no vomiting. Patient denied any chest pain, fever chills or cough. Patient has a left arm AV fistula. Nephrology consulted for emergent HD, CM notified for HD setup. 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 Neck: No neck pain or rigidity. Cardiovascular: no palpitations, no chest pain Respiratory: no cough, + shortness of breath Gastrointestinal: no hematochezia Genitourinary : no frequency , no hematuria Musculoskeletal: no joint swelling or muscle ache Integumentary: no rash, no pruritis Neurological: no parathesias, no focal weakness Endocrine: no cold or heat intolerance, no polyuria or polydipsia Hematologic/Lymphatic: no easy bruising, no easy bleeding, no gland swelling Allergic/Immunologic: no urticaria, no angioedema. Medications and Allergies Allergies Allergy/AdvReac Type Severity Reaction Status Date / Time No Known Allergies Allergy Verified 09/27/18 15:18 Home Medications Medication Instructions Recorded Confirmed Last Taken Type Ibuprofen [Motrin] 600 mg PO Q8H PRN #30 tablet 12/09/17 09/22/18 Rx Ondansetron [Zofran Odt] 4 mg PO Q8HR PRN #15 tab.rapdis 09/26/18 Unknown Rx Amoxicillin/K Clav Tab [Augmentin 1 tab PO Q12HR #14 tab 10/08/18 Unknown Rx 875 mg] Cyclobenzaprine [Flexeril 10 MG 10 mg PO QHS PRN #10 tablet 10/08/18 Unknown Rx TAB] Epoetin Chidi 20,000 Unit [Procrit] 20,000 unit SUB-Q TETE PRN vial 10/08/18 Unknown Rx Gabapentin 300 mg PO Q8H #90 capsule 10/08/18 Unknown Rx HYDROcodone/APAP 5-325 [[place] 1 each PO Q6HR PRN #30 tablet 10/08/18 Unknown Rx 5-325 mg TAB] Insulin Glargine [Lantus VIAL] 10 units SUB-Q QHS #1 pen 10/08/18 Unknown Rx Pantoprazole [Protonix TAB] 40 mg PO QDAY #30 tablet 10/08/18 Unknown Rx megestroL [Megestrol] 40 mg PO QDAY #30 tablet 10/08/18 Unknown Rx Ondansetron [Zofran Odt] 4 mg PO Q8HR PRN #20 tab.rapdis 10/24/18 Unknown Rx Active Meds: Active Medications Epoetin Chidi (Procrit) 10,000 unit SUB-Q TETE PRN PRN Reason: hemodialysis Sodium Chloride (Nacl 0.9%) 100 mls @ 999 mls/hr IV TETE PRN PRN Reason: Hypotension Exam - Physical Exam Narrative exam: General Apperance: The patient lying in bed, breathing comfortable - getting HD HEENT: Normocephalic, atraumatic. Pupils equally round and reactive to light, EOMI, no sclericterus or JVD or thyromegaly or nodule. , no carotid bruit, mucous membranes moist, no exudate or erythema Heart: S1-S2, regular is rhythm Lungs: Clear to auscultation bilaterally, breathing comfortable Abdomen: Positive bowel sounds, soft, nontender, nondistended, no organomegaly Extremities:no edema, chronic skin changes Skin: no rash, nodule, warm and dry Neuro: cranial nerves 2-12 intact, speech is fluent, motor/sensory intact - Constitutional Vitals: Temp Pulse Resp BP Pulse Ox 97.9 F 104 H 24 182/87 100 10/31/19 07:52 10/31/19 07:52 10/31/19 07:52 10/31/19 07:52 10/31/19 07:52 HEART Score - HEART Score Troponin: Troponin T 0.132 ng/mL (0.00-0.029) H* 10/31/19 11:25 Results - Labs CBC & Chem 7: 10/31/19 09:24 10/31/19 09:24 Labs: Abnormal lab results 10/31/19 10/31/19 10/31/19 Range/Units 09:24 09:24 11:25 RBC 2.77 L (3.65-5.03) M/mm3 Hgb 8.9 L (11.8-15.2) gm/dl Hct 27.0 L (35.5-45.6) % MCV 97 H (84-94) fl RDW 17.5 H (13.2-15.2) % Lymph % (Auto) 9.4 L (13.4-35.0) % [place] % (Auto) 9.1 H (0.0-7.3) % Lymph # 0.7 L (1.2-5.4) K/mm3 Seg Neutrophils % 79.2 H (40.0-70.0) % Potassium 6.5 H* (3.6-5.0) mmol/L Chloride 112.0 H (98-107) mmol/L Carbon Dioxide 11 L (22-30) mmol/L BUN 59 H (9-20) mg/dL Creatinine 5.9 H (0.8-1.3) mg/dL Glucose 151 H (75-100) mg/dL Calcium 7.8 L (8.4-10.2) mg/dL Troponin T 0.137 H* 0.132 H* (0.00-0.029) ng/mL - Imaging and Cardiology Chest x-ray: report reviewed Assessment and Plan End-stage renal disease need emergent dialysis - Nephrology consulted, cont to monitor for HD need - need outpt Hd setup, CM notified Volume overload, need emergent HD Hyperkalemia, K 6.5 - monitor K level, s/p hyperkalemia cocktail in the ER - level should improve after HD Anemia of chronic disease, monitor h/h Elevated troponin/NSTEMI type II due to ESRD - denies any chest pain - - cont aspirin/ statin Hypertension - resume home meds, monitor BP DM type 2 - consistent carb diet with SSI - dvt Px with heparin
[2019-10-31 13:45] LABS: Hepatitis B Surface Antigen Non-Reactive (Negative); Hepatitis C Virus Antibody Non-Reactive (NonReactive)
[2019-10-31] MEDS ORDERED: CYCLOBENZAPRINE 10 MG TAB PO PRN (15:42)
[2019-10-31] MEDS ORDERED: ONDANSETRON 4 MG ODT TAB PO PRN (15:42)
[2019-10-31] MEDS ORDERED: EPOETIN ALFA 20,000 UNIT/1 ML INJ SUB-Q PRN (15:42)
[2019-10-31] MEDS ORDERED: GABAPENTIN 400 MG CAP PO SCH (16:00)
--- NOTE | 2019-10-31 17:49 | Consultation ---
History of Present Illness - Reason for Consult Consult date: 10/31/19 end stage renal disease - History of Present Illness The patient is a 59 YO male who is known to our service with history significant for Obesity, DM-2, HTN, HLD and ESRD on hemodialysis (MWF) who presented to [facility] ED 10/30 with complaints of worsening sob, leg swelling, weakness and nausea for the past 1-2 weeks. Patient stated that he was discharged from [facility] on 10/01/19. Patient stated that he was receiving hemodialysis 3 times a week over there but [facility] he did not have any dialysis. Currently he is not established with any outpatient dialysis unit. Patient denies any chest pain, fever, chills, cough, abd pain, rash, dizziness or syncope. Nephrology was consulted for ESRD management. Past History Past Medical History: other (See HPI) Medications and Allergies Allergies Allergy/AdvReac Type Severity Reaction Status Date / Time No Known Allergies Allergy Verified 09/27/18 15:18 Home Medications Medication Instructions Recorded Confirmed Last Taken Type Ibuprofen [Motrin] 600 mg PO Q8H PRN #30 tablet 12/09/17 09/22/18 Rx Ondansetron [Zofran Odt] 4 mg PO Q8HR PRN #15 tab.rapdis 09/26/18 Unknown Rx Amoxicillin/K Clav Tab [Augmentin 1 tab PO Q12HR #14 tab 10/08/18 Unknown Rx 875 mg] Cyclobenzaprine [Flexeril 10 MG 10 mg PO QHS PRN #10 tablet 10/08/18 Unknown Rx TAB] Epoetin Chidi 20,000 Unit [Procrit] 20,000 unit SUB-Q TETE PRN vial 10/08/18 Unknown Rx Gabapentin 300 mg PO Q8H #90 capsule 10/08/18 Unknown Rx HYDROcodone/APAP 5-325 [[place] 1 each PO Q6HR PRN #30 tablet 10/08/18 Unknown Rx 5-325 mg TAB] Insulin Glargine [Lantus VIAL] 10 units SUB-Q QHS #1 pen 10/08/18 Unknown Rx Pantoprazole [Protonix TAB] 40 mg PO QDAY #30 tablet 10/08/18 Unknown Rx megestroL [Megestrol] 40 mg PO QDAY #30 tablet 10/08/18 Unknown Rx Ondansetron [Zofran Odt] 4 mg PO Q8HR PRN #20 tab.rapdis 10/24/18 Unknown Rx Active Meds: Active Medications Acetaminophen/Hydrocodone Bitart ([place] 5/325) 1 each PO Q6HR PRN PRN Reason: PAIN Cyclobenzaprine HCl (Flexeril) 10 mg PO QHS PRN PRN Reason: Muscle Spasm Epoetin Chidi (Procrit) 10,000 unit SUB-Q TETE PRN PRN Reason: hemodialysis Epoetin Chidi (Procrit) 20,000 unit SUB-Q TETE PRN PRN Reason: hemodialysis Gabapentin (Gabapentin) 300 mg PO Q8H GILLIAN Heparin Sodium (Porcine) (Heparin) 5,000 unit SUB-Q Q12HR GILLIAN Sodium Chloride (Nacl 0.9%) 100 mls @ 999 mls/hr IV TETE PRN PRN Reason: Hypotension Insulin Glargine (Lantus) 10 units SUB-Q QHS GILLIAN Megestrol Acetate (Megestrol) 40 mg PO QDAY GILLIAN Ondansetron HCl (Zofran Odt) 4 mg PO Q8HR PRN PRN Reason: Nausea Pantoprazole Sodium (Protonix) 40 mg PO QDAY GILLIAN Review of Systems Constitutional: fatigue, weakness, no weight loss, no weight gain, no fever, no chills Cardiovascular: orthopnea, edema, shortness of breath, dyspnea on exertion, high blood pressure, leg edema, no chest pain, no syncope, no lightheadedness Respiratory: shortness of breath, dyspnea on exertion, no cough Gastrointestinal: nausea, no abdominal pain, no vomiting, no diarrhea, no melena Genitourinary Male: no dysuria, no hematuria Rectal: no bleeding Musculoskeletal: muscle weakness, no muscle cramps Neurological: no seizures, no syncope, no change in speech, no change in mentat ion, no confusion Exam - Vital Signs Vital signs: Vital Signs Temp Pulse Resp BP Pulse Ox 97.9 F 104 H 24 182/87 100 10/31/19 07:52 10/31/19 07:52 10/31/19 07:52 10/31/19 07:52 10/31/19 07:52 - General Appearance General appearance: well-developed, well-nourished, appears stated age, obese, other (not in distress) EENT: ATNC, PERRL, mucous membranes moist, hearing intact, vision intact Neck: Present: neck supple, trachea midline Respiratory: Clear to Ascultation Heart: regular, S1S2, no murmurs Gastrointestinal: Present: normoactive bowel sounds, obese. Absent: tenderness, distended Integumentary: other (R foot lateral aspect area of discoloration) Neurologic: no focal deficit, no asterixis, alert and oriented x3 Musculoskeletal: Present: other (R great toe amputated, 1+ LE edema noted, L arm AVF) Psychiatric: cooperative Results - Lab Results 10/31/19 09:24 10/31/19 09:24 Most recent lab results Calcium 7.8 mg/dL (8.4-10.2) L 10/31/19 09:24 Assessment and Plan 1. ESRD: Patient presented to ED after missed 3 weeks of hemodialysis. Currently he is not established with any dialysis unit. Hemodialysis: 10/30. Need outpatient HD unit. Will try to get chair at [facility] Need COVID-19 testing for placement, ordered. 2. FEN: Hyperkalemia, s/p HD, monitor. Anion-gap metabolic acidosis, s/p HD, monitor. Volume overload, s/p UF with HD. Monitor lytes. 3. Anemia: Secondary to ESRD. Epogen. 4. DM type 2: Counseled. 5. HTN: Monitor BP.
[2019-10-31] MEDS: HYDROcodone/ACETAMINOPHEN 5-325 MG TAB PO PRN (18:28)
[2019-10-31] MEDS: INSULIN GLARGINE 100 UNITS/ML SUB-Q SCH (22:04)
[2019-10-31] MEDS: HEPARIN 5,000 UNIT/1 ML VIAL SUB-Q SCH (22:05)
[2019-10-31] MEDS: INSULIN LISPRO 100 UNIT/ML VIAL 3 mL SUB-Q SCH (22:06)
[2019-11-01] MEDS: GABAPENTIN 300 MG CAP PO SCH ×3 (01:42→18:00)
[2019-11-01] MEDS ORDERED: SODIUM CHLORIDE 0.9% 100 ML IV PRN (06:58)
[2019-11-01] MEDS: INSULIN LISPRO 100 UNIT/ML VIAL 3 mL SUB-Q SCH ×4 (08:00→22:20)
--- NOTE | 2019-11-01 09:39 | Progress Note ---
Assessment and Plan 1. ESRD: Patient presented to ED after missed 3 weeks of hemodialysis. Currently he is not established with any dialysis unit. Hemodialysis: 10/30, 10/31. 2. FEN: Hyperkalemia, improved s/p HD, monitor. Anion-gap metabolic acidosis, improved s/p HD, monitor. Volume overload, UF with HD as tolerated. Monitor lytes. 3. Anemia: Secondary to ESRD. Epogen. 4. DM type 2: Counseled. 5. HTN: Monitor BP. Await outpatient HD chair. - Subjective: Patient was seen and examined at the bedside. Doing much better. - General Appearance General appearance: well-developed, well-nourished, appears stated age, obese, not in distress HEENT: ATNC, ASHWIN, mucous membrane moist, hearing intact, vision intact Neck: Present: neck supple, trachea midline Respiratory: Clear to Ascultation Heart: regular, S1S2, no murmurs Gastrointestinal: soft, normoactive bowel sounds, obese, not tender Integumentary: R foot lateral aspect area of discoloration Neurologic: no focal deficit, no asterixis, alert and oriented x3 Ext: R great toe amputated, 1+ LE edema noted Hemodialysis access: L arm AVF Psychiatric: cooperative Subjective Date of service: 11/01/19 Objective - Vital Signs Vital signs: Vital Signs - 12hr 10/31/19 11/01/19 11/01/19 23:34 00:00 03:51 Temperature 98.0 F 98.0 F Pulse Rate 99 H 120 H Respiratory 18 18 18 Rate Blood Pressure 146/54 138/63 O2 Sat by Pulse 96 96 90 Oximetry 11/01/19 11/01/19 03:59 08:00 Temperature 98.0 F Pulse Rate 94 H 136 H Respiratory 20 Rate Blood Pressure 141/82 O2 Sat by Pulse 95 Oximetry - Lab 10/31/19 09:24 11/01/19 19:48 Most recent lab results Calcium 7.8 mg/dL (8.4-10.2) L 10/31/19 09:24 Medications & Allergies - Medications Allergies/Adverse Reactions: Allergies No Known Allergies Allergy (Verified 09/27/18 15:18) Home Medications: Home Medications Medication Instructions Recorded Confirmed Last Taken Type Ibuprofen [Motrin] 600 mg PO Q8H PRN #30 tablet 12/09/17 09/22/18 Rx Ondansetron [Zofran Odt] 4 mg PO Q8HR PRN #15 tab.rapdis 09/26/18 Unknown Rx Amoxicillin/K Clav Tab [Augmentin 1 tab PO Q12HR #14 tab 10/08/18 Unknown Rx 875 mg] Cyclobenzaprine [Flexeril 10 MG 10 mg PO QHS PRN #10 tablet 10/08/18 Unknown Rx TAB] Epoetin Chidi 20,000 Unit [Procrit] 20,000 unit SUB-Q TETE PRN vial 10/08/18 Un known Rx Gabapentin 300 mg PO Q8H #90 capsule 10/08/18 Unknown Rx HYDROcodone/APAP 5-325 [[place] 1 each PO Q6HR PRN #30 tablet 10/08/18 Unknown Rx 5-325 mg TAB] Insulin Glargine [Lantus VIAL] 10 units SUB-Q QHS #1 pen 10/08/18 Unknown Rx Pantoprazole [Protonix TAB] 40 mg PO QDAY #30 tablet 10/08/18 Unknown Rx megestroL [Megestrol] 40 mg PO QDAY #30 tablet 10/08/18 Unknown Rx Ondansetron [Zofran Odt] 4 mg PO Q8HR PRN #20 tab.rapdis 10/24/18 Unknown Rx Active Medications: Generic Name Dose Route Start Last Admin Trade Name Freq PRN Reason Stop Dose Admin Acetaminophen/Hydrocodone Bitart 1 each 10/31/19 15:42 10/31/19 18:28 [place] 5/325 PO 1 each Q6HR PRN Administration PAIN Cyclobenzaprine HCl 10 mg 10/31/19 15:42 Flexeril PO QHS PRN Muscle Spasm Epoetin Chidi 10,000 unit 10/31/19 11:59 Procrit SUB-Q TETE PRN hemodialysis Epoetin Chidi 20,000 unit 10/31/19 15:42 Procrit SUB-Q TETE PRN hemodialysis Gabapentin 300 mg 11/01/19 02:00 11/01/19 01:42 Gabapentin PO 300 mg Q8H GILLIAN Administration Heparin Sodium (Porcine) 5,000 unit 10/31/19 22:00 10/31/19 22:05 Heparin SUB-Q 5,000 unit Q12HR GILLIAN Administration Sodium Chloride 100 mls @ 999 mls/hr 11/01/19 06:58 Nacl 0.9% IV TETE PRN Hypotension Insulin Glargine 10 units 10/31/19 22:00 10/31/19 22:04 Lantus SUB-Q 10 units QHS GILLIAN Administration Insulin Human Lispro 0 unit 10/31/19 22:00 10/31/19 22:06 Humalog SUB-Q 2 unit ACHS GILLIAN Administration Protocol Megestrol Acetate 40 mg 11/01/19 10:00 Megestrol PO QDAY [facility] Ondansetron HCl 4 mg 10/31/19 15:42 Zofran Odt PO Q8HR PRN Nausea Pantoprazole Sodium 40 mg 11/01/19 10:00 Protonix PO QDAY GILLIAN
[2019-11-01] MEDS ORDERED: MEGESTROL 40 MG TAB PO SCH (10:00)
[2019-11-01] MEDS: HEPARIN 5,000 UNIT/1 ML VIAL SUB-Q SCH ×2 (10:00→21:11)
--- NOTE | 2019-11-01 13:52 | Progress Note ---
Assessment and Plan End-stage renal disease need emergent dialysis - Nephrology consulted, cont to monitor for HD need - need outpt Hd setup, CM notified Volume overload, s/p emergent HD x2 Hyperkalemia, K 6.5 - monitor K level, s/p hyperkalemia cocktail in the ER - level should improve after HD Anemia of chronic disease, monitor h/h Elevated troponin/NSTEMI type II due to ESRD - denies any chest pain - - cont aspirin/ statin - will get 2d echo Hypertension - resumed home meds, monitor BP DM type 2 - consistent carb diet with SSI Morbid obesity- diet and exercise recommendation - dvt Px with heparin - discharge pending on outpt HD setup. follow 2d echo Subjective Date of service: 11/01/19 Interval history: patient seen and examined vitals noted denies chest pain or SOB CM working on outpt HD setup Objective - Exam Narrative Exam: General Apperance: The patient lying in bed, breathing comfortable - getting HD HEENT: Normocephalic, atraumatic. Pupils equally round and reactive to light, EOMI, no sclericterus or JVD or thyromegaly or nodule. , no carotid bruit, mucous membranes moist, no exudate or erythema Heart: S1-S2, regular is rhythm Lungs: Clear to auscultation bilaterally, breathing comfortable Abdomen: Positive bowel sounds, soft, nontender, nondistended, no organomegaly Extremities:no edema, chronic skin changes Skin: no rash, nodule, warm and dry Neuro: cranial nerves 2-12 intact, speech is fluent, motor/sensory intact - Constitutional Vitals: Vital Signs - 12hr 11/01/19 11/01/19 11/01/19 03:51 03:59 08:00 Temperature 98.0 F 98.0 F Pulse Rate 120 H 94 H 136 H Respiratory 18 20 Rate Blood Pressure 138/63 141/82 O2 Sat by Pulse 90 95 Oximetry 11/01/19 11/01/19 11/01/19 10:00 10:15 10:30 Temperature 98.3 F Pulse Rate 70 70 73 Respiratory 16 Rate Blood Pressure 153/84 153/84 159/86 O2 Sat by Pulse Oximetry 11/01/19 10:45 Temperature Pulse Rate 72 Respiratory Rate Blood Pressure 140/78 O2 Sat by Pulse Oximetry - Labs CBC & Chem 7: 10/31/19 09:24 10/31/19 09:24 Labs: Abnormal lab results 10/31/19 10/31/19 Range/Units 12:58 21:30 POC Glucose 178 H (70-105) Troponin T 0.134 H* (0.00-0.029) ng/mL HEART Score - HEART Score Troponin: Troponin T 0.134 ng/mL (0.00-0.029) H* 10/31/19 12:58
[2019-11-01] MEDS: PANTOPRAZOLE 40 MG TAB PO SCH (16:28)
[2019-11-01] MEDS: HYDROcodone/ACETAMINOPHEN 5-325 MG TAB PO PRN (16:36)
[2019-11-01] MEDS: ASPIRIN 81 MG TAB CHEW PO SCH (16:37)
[2019-11-01] MEDS: amLODIPine 10 MG TAB PO SCH (16:38)
[2019-11-01 21:00] LABS: Calcium 7.7 mg/dL (8.4-10.2)
[2019-11-01] MEDS: INSULIN GLARGINE 100 UNITS/ML SUB-Q SCH (22:20)
[2019-11-02] MEDS: GABAPENTIN 300 MG CAP PO SCH ×3 (05:55→18:47)
[2019-11-02] MEDS: INSULIN LISPRO 100 UNIT/ML VIAL 3 mL SUB-Q SCH ×4 (07:15→21:46)
[2019-11-02] MEDS: HEPARIN 5,000 UNIT/1 ML VIAL SUB-Q SCH ×2 (10:14→21:48)
[2019-11-02] MEDS: PANTOPRAZOLE 40 MG TAB PO SCH (10:14)
[2019-11-02] MEDS: amLODIPine 10 MG TAB PO SCH (10:14)
[2019-11-02] MEDS: ASPIRIN 81 MG TAB CHEW PO SCH (10:14)
--- NOTE | 2019-11-02 12:52 | Progress Note ---
Assessment and Plan 1. ESRD: Patient presented to ED after missed 3 weeks of hemodialysis. Currently he is not established with any dialysis unit. Hemodialysis: 10/30, 10/31. 2. FEN: Hyperkalemia, improved s/p HD, monitor. Anion-gap metabolic acidosis, improved s/p HD, monitor. Volume overload, UF with HD as tolerated. Monitor lytes. 3. Anemia: Secondary to ESRD. Epogen. 4. DM type 2: Counseled. 5. HTN: Monitor BP. Await outpatient HD chair. - Subjective: Patient was seen and examined at the bedside. Doing better. - General Appearance General appearance: well-developed, well-nourished, appears stated age, obese, not in distress HEENT: ATNC, ASHWIN, mucous membrane moist, hearing intact, vision intact Neck: Present: neck supple, trachea midline Respiratory: Clear to Ascultation Heart: regular, S1S2, no murmur Gastrointestinal: soft, normoactive bowel sounds, obese, not tender Integumentary: R foot lateral aspect area of discoloration Neurologic: no focal deficit, no asterixis, alert and oriented x3 Ext: R great toe amputated, trace LE edema noted Hemodialysis access: L arm AVF Psychiatric: cooperative Subjective Date of service: 11/02/19 Objective - Vital Signs Vital signs: Vital Signs - 12hr 11/02/19 11/02/19 11/02/19 04:33 04:59 05:00 Temperature 98.0 F 68 F L Pulse Rate 79 Respiratory 20 Rate Blood Pressure 148/70 O2 Sat by Pulse Oximetry 11/02/19 07:29 Temperature 98.6 F Pulse Rate 75 Respiratory 20 Rate Blood Pressure 139/78 O2 Sat by Pulse 95 Oximetry - Lab 10/31/19 09:24 11/01/19 19:48 Most recent lab results Calcium 7.7 mg/dL (8.4-10.2) L 11/01/19 19:48 Medications & Allergies - Medications Allergies/Adverse Reactions: Allergies No Known Allergies Allergy (Verified 09/27/18 15:18) Home Medications: Home Medications Medication Instructions Recorded Confirmed Last Taken Type Ibuprofen [Motrin] 600 mg PO Q8H PRN #30 tablet 12/09/17 09/22/18 Rx Ondansetron [Zofran Odt] 4 mg PO Q8HR PRN #15 tab.rapdis 09/26/18 Unknown Rx Amoxicillin/K Clav Tab [Augmentin 1 tab PO Q12HR #14 tab 10/08/18 Unknown Rx 875 mg] Cyclobenzaprine [Flexeril 10 MG 10 mg PO QHS PRN #10 tablet 10/08/18 Unknown Rx TAB] Epoetin Chidi 20,000 Unit [Procrit] 20,000 unit SUB-Q TETE PRN vial 10/08/18 Unknown Rx Gabapentin 300 mg PO Q8H #90 capsule 10/08/18 Unknown Rx HYDROcodone/APAP 5-325 [[place] 1 each PO Q6HR PRN #30 tablet 10/08/18 Unknown Rx 5-325 mg TAB] Insulin Glargine [Lantus VIAL] 10 units SUB-Q QHS #1 pen 10/08/18 Unknown Rx Pantoprazole [Protonix TAB] 40 mg PO QDAY #30 tablet 10/08/18 Unknown Rx megestroL [Megestrol] 40 mg PO QDAY #30 tablet 10/08/18 Unknown Rx Ondansetron [Zofran Odt] 4 mg PO Q8HR PRN #20 tab.rapdis 10/24/18 Unknown Rx Active Medications: Generic Name Dose Route Start Last Admin Trade Name Freq PRN Reason Stop Dose Admin Acetaminophen/Hydrocodone Bitart 1 each 10/31/19 15:42 11/01/19 16:36 [place] 5/325 PO 1 each Q6HR PRN Administration PAIN Amlodipine Besylate 10 mg 11/01/19 16:00 11/02/19 10:14 Amlodipine PO 10 mg QDAY GILLIAN Administration Aspirin 81 mg 11/01/19 16:00 11/02/19 10:14 Baby Aspirin PO 81 mg QDAY GILLIAN Administration Atorvastatin Calcium 40 mg 11/01/19 22:00 11/01/19 21:12 Lipitor PO 40 mg QHS GILLIAN Administration Cyclobenzaprine HCl 10 mg 10/31/19 15:42 11/01/19 21:12 Flexeril PO 10 mg QHS PRN Administration Muscle Spasm Epoetin Chidi 10,000 unit 10/31/19 11:59 Procrit SUB-Q TETE PRN hemodialysis Gabapentin 300 mg 11/01/19 02:00 11/02/19 10:17 Gabapentin PO 300 mg Q8H GILLIAN Administration Heparin Sodium (Porcine) 5,000 unit 10/31/19 22:00 11/02/19 10:14 Heparin SUB-Q 5,000 unit Q12HR GILLIAN Administration Sodium Chloride 100 mls @ 999 mls/hr 11/01/19 06:58 Nacl 0.9% IV TETE PRN Hypotension Insulin Glargine 10 units 10/31/19 22:00 11/01/19 22:20 Lantus SUB-Q Not Given QHS [facility] Insulin Human Lispro 0 unit 10/31/19 22:00 11/02/19 07:15 Humalog SUB-Q Not Given ACHS [facility] Protocol Ondansetron HCl 4 mg 10/31/19 15:42 Zofran Odt PO Q8HR PRN Nausea Pantoprazole Sodium 40 mg 11/01/19 10:00 11/02/19 10:14 Protonix PO 40 mg QDAY GILLIAN Administration
--- NOTE | 2019-11-02 16:52 | Progress Note ---
Assessment and Plan End-stage renal disease need emergent dialysis - Nephrology consulted, cont to monitor for HD need - need outpt Hd setup, CM notified Volume overload, s/p emergent HD x2 Hyperkalemia, K 6.5 - monitor K level, s/p hyperkalemia cocktail in the ER - level improved after HD Anemia of chronic disease, monitor h/h Elevated troponin/NSTEMI type II due to ESRD - denies any chest pain - - cont aspirin/ statin - preserved EF on 2d echo Hypertension - resumed home meds, monitor BP DM type 2 - consistent carb diet with SSI Morbid obesity- diet and exercise recommendation - dvt Px with heparin - discharge pending on outpt HD setup. Subjective Date of service: 11/02/19 Interval history: patient seen and examined vitals noted denies chest pain or SOB CM working on outpt HD setup Objective - Exam Narrative Exam: General Apperance: The patient lying in bed, breathing comfortable - getting HD HEENT: Normocephalic, atraumatic. Pupils equally round and reactive to light, EOMI, no sclericterus or JVD or thyromegaly or nodule. , no carotid bruit, mucous membranes moist, no exudate or erythema Heart: S1-S2, regular is rhythm Lungs: Clear to auscultation bilaterally, breathing comfortable Abdomen: Positive bowel sounds, soft, nontender, nondistended, no organomegaly Extremities:no edema, chronic skin changes Skin: no rash, nodule, warm and dry Neuro: cranial nerves 2-12 intact, speech is fluent, motor/sensory intact - Constitutional Vitals: Vital Signs - 12hr 11/02/19 11/02/19 11/02/19 04:59 05:00 07:29 Temperature 68 F L 98.6 F Pulse Rate 79 75 Respiratory 20 Rate Blood Pressure 139/78 O2 Sat by Pulse 95 Oximetry 11/02/19 16:22 Temperature 98.9 F Pulse Rate 73 Respiratory 20 Rate Blood Pressure 147/70 O2 Sat by Pulse 94 Oximetry - Labs CBC & Chem 7: 10/31/19 09:24 11/01/19 19:48 Labs: Abnormal lab results 11/01/19 11/01/19 11/02/19 Range/Units 19:48 20:56 07:29 BUN 27 H (9-20) mg/dL Creatinine 4.4 H (0.8-1.3) mg/dL Glucose 108 H (75-100) mg/dL POC Glucose 121 H 111 H (70-105) Calcium 7.7 L (8.4-10.2) mg/dL 11/02/19 11/02/19 Range/Units 11:33 16:04 BUN (9-20) mg/dL Creatinine (0.8-1.3) mg/dL Glucose (75-100) mg/dL POC Glucose 145 H 138 H (70-105) Calcium (8.4-10.2) mg/dL HEART Score - HEART Score Troponin: Troponin T 0.134 ng/mL (0.00-0.029) H* 10/31/19 12:58
[2019-11-02] MEDS: INSULIN GLARGINE 100 UNITS/ML SUB-Q SCH (21:47)
[2019-11-03] MEDS: GABAPENTIN 300 MG CAP PO SCH ×3 (03:00→17:23)
[2019-11-03] MEDS ORDERED: SODIUM CHLORIDE 0.9% 100 ML IV PRN (08:21)
[2019-11-03] MEDS: INSULIN LISPRO 100 UNIT/ML VIAL 3 mL SUB-Q SCH ×4 (09:53→21:17)
[2019-11-03] MEDS: amLODIPine 10 MG TAB PO SCH ×2 (10:16→13:49)
--- NOTE | 2019-11-03 10:51 | Progress Note ---
Assessment and Plan 1. ESRD: Patient presented to ED after missed 3 weeks of hemodialysis. Currently he is not established with any dialysis unit. Hemodialysis: 10/30, 10/31, 11/02. 2. FEN: Hyperkalemia, improved s/p HD, monitor. Anion-gap metabolic acidosis, improved s/p HD, monitor. Volume overload, improving, UF with HD as tolerated. Monitor lytes. 3. Anemia: Secondary to ESRD. Epogen. 4. DM type 2: Counseled. 5. HTN: Monitor BP. Await outpatient HD chair. Will follow with Marah. - Subjective: Patient was seen and examined at the bedside. Doing better. He wants to go home today. - General Appearance General appearance: well-developed, well-nourished, appears stated age, obese, not in distress HEENT: ATNC, ASHWIN, mucous membrane moist, hearing intact, vision intact Neck: Present: neck supple, trachea midline Respiratory: Clear to Ascultation Heart: regular, S1S2, no murmur Gastrointestinal: soft, normoactive bowel sounds, obese, not tender Integumentary: R foot lateral aspect area of discoloration Neurologic: no focal deficit, no asterixis, alert and oriented x3 Ext: R great toe amputated, trace LE edema noted Hemodialysis access: L arm AVF Psychiatric: cooperative Subjective Date of service: 11/03/19 Objective - Vital Signs Vital signs: Vital Signs - 12hr 11/03/19 11/03/19 11/03/19 00:21 04:10 05:00 Temperature 98.9 F 98.0 F Pulse Rate 80 78 78 Respiratory 18 18 Rate Blood Pressure 139/59 140/50 O2 Sat by Pulse 93 96 Oximetry 11/03/19 11/03/19 11/03/19 08:03 09:30 09:45 Temperature 97.9 F 97.6 F Pulse Rate 80 66 67 Respiratory 18 16 Rate Blood Pressure 176/86 140/70 157/74 O2 Sat by Pulse 99 Oximetry 11/03/19 11/03/19 11/03/19 10:00 10:15 10:45 Temperature Pulse Rate 70 72 73 Respiratory Rate Blood Pressure 160/80 155/81 157/77 O2 Sat by Pulse Oximetry - Lab 10/31/19 09:24 11/01/19 19:48 Most recent lab results Calcium 7.7 mg/dL (8.4-10.2) L 11/01/19 19:48 Medications & Allergies - Medications Allergies/Adverse Reactions: Allergies No Known Allergies Allergy (Verified 09/27/18 15:18) Home Medications: Home Medications Medication Instructions Recorded Confirmed Last Taken Type Ibuprofen [Motrin] 600 mg PO Q8H PRN #30 tablet 12/09/17 11/03/19 09/22/18 Rx Ondansetron [Zofran Odt] 4 mg PO Q8HR PRN #15 tab.rapdis 09/26/18 11/03/19 Unknown Rx Amoxicillin/K Clav Tab [Augmentin 1 tab PO Q12HR #14 tab 10/08/18 11/03/19 Unknown Rx 875 mg] Cyclobenzaprine [Flexeril 10 MG 10 mg PO QHS PRN #10 tablet 10/08/18 11/03/19 11/01/19 Rx TAB] Epoetin Chidi 20,000 Unit [Procrit] 20,000 unit SUB-Q TETE PRN vial 10/08/18 11/03/19 11/03/19 Rx Gabapentin 300 mg PO Q8H #90 capsule 10/08/18 11/03/19 11/03/19 Rx HYDROcodone/APAP 5-325 [[place] 1 each PO Q6HR PRN #30 tablet 10/08/18 11/03/19 Unknown Rx 5-325 mg TAB] Insulin Glargine [Lantus VIAL] 10 units SUB-Q QHS #1 pen 10/08/18 11/03/19 Unk nown Rx Pantoprazole [Protonix TAB] 40 mg PO QDAY #30 tablet 10/08/18 11/03/19 Unknown Rx megestroL [Megestrol] 40 mg PO QDAY #30 tablet 10/08/18 11/03/19 Unknown Rx Ondansetron [Zofran Odt] 4 mg PO Q8HR PRN #20 tab.rapdis 10/24/18 11/03/19 Unknown Rx Active Medications: Generic Name Dose Route Start Last Admin Trade Name Freq PRN Reason Stop Dose Admin Acetaminophen/Hydrocodone Bitart 1 each 10/31/19 15:42 11/01/19 16:36 [place] 5/325 PO 1 each Q6HR PRN Administration PAIN Amlodipine Besylate 10 mg 11/01/19 16:00 08/22/20 10:16 Amlodipine PO Not Given QDAY GILLIAN Aspirin 81 mg 11/01/19 16:00 11/02/19 10:14 Baby Aspirin PO 81 mg QDAY GILLIAN Administration Atorvastatin Calcium 40 mg 11/01/19 22:00 11/02/19 21:48 Lipitor PO 40 mg QHS GILLIAN Administration Cyclobenzaprine HCl 10 mg 10/31/19 15:42 11/01/19 21:12 Flexeril PO 10 mg QHS PRN Administration Muscle Spasm Epoetin Chidi 10,000 unit 10/31/19 11:59 Procrit SUB-Q TETE PRN hemodialysis Gabapentin 300 mg 11/01/19 02:00 11/03/19 03:00 Gabapentin PO 300 mg Q8H GILLIAN Administration Heparin Sodium (Porcine) 5,000 unit 10/31/19 22:00 11/02/19 21:48 Heparin SUB-Q 5,000 unit Q12HR GILLIAN Administration Sodium Chloride 100 mls @ 999 mls/hr 11/01/19 06:58 Nacl 0.9% IV TETE PRN Hypotension Insulin Glargine 10 units 10/31/19 22:00 11/02/19 21:47 Lantus SUB-Q 10 units QHS [facility] Administration Insulin Human Lispro 0 unit 10/31/19 22:00 11/03/19 09:53 Humalog SUB-Q Not Given ACHS [facility] Protocol Ondansetron HCl 4 mg 10/31/19 15:42 Zofran Odt PO Q8HR PRN Nausea Pantoprazole Sodium 40 mg 11/01/19 10:00 11/02/19 10:14 Protonix PO 40 mg QDAY [facility] Administration
[2019-11-03] MEDS: ASPIRIN 81 MG TAB CHEW PO SCH (13:49)
[2019-11-03] MEDS: PANTOPRAZOLE 40 MG TAB PO SCH (13:49)
[2019-11-03] MEDS: HEPARIN 5,000 UNIT/1 ML VIAL SUB-Q SCH (13:50)
--- NOTE | 2019-11-03 14:44 | Discharge Summary ---
Providers - Providers Date of Admission: 11/01/19 14:28 Date of discharge: 11/04/19 Attending physician: DEREK GUTIERREZ 10/31/19 11:55 Consult to Physician [CONS] Stat Comment: Consulting Provider: BRIDGER SCOTT Physician Instructions: Reason For Exam: End-stage renal disease with hyperkalemia and need Primary care physician: GIBSON IZAGUIRRE Hospitalization Condition: Stable Pertinent studies: CXR 2d echo Hospital course: Patient is 59 years old male with history of end-stage renal disease on h emodialysis, hypertension and diabetes presented to ER for dialysis need. Patient stated that [facility]. Patient stated that he was getting his dialysis over there but since he left the care home approximately 3 weeks ago he did not have any regular dialysis. He currently doesnot have any outpt HD set up. He went to other hospitals to get HD interim. On admission Patient was complaining of shortness of breath and generalized weakness, nausea but no vomiting. Patient has a left arm AV fistula. Nephrology consulted for emergent HD, CM notified for HD setup. Patient also noted in paroxysmal atrial fibrillation, cardiology consulted, he was placed on BB and eliquis. 2d echo showed preserved EF. CM arranged outpt HD and then patient was discharged home in stable condition with outpt f/u. Discharge diagnosis: New onset atrial fibrillation - rate controlled with BB and placed on eliquis End-stage renal disease needed emergent dialysis and outpatient dialysis set up Volume overload, s/p emergent HD x2 Hyperkalemia, K 6.5, s/p hyperkalemia cocktail in the ER - level improved after HD Anemia of chronic disease Elevated troponin/NSTEMI type II due to ESRD - preserved EF on 2d echo Hypertension, stable DM type 2 Morbid obesity- diet and exercise recommendation Disposition: DC- TO HOME OR SELFCARE Time spent for discharge: 34 minutes Core Measure Documentation - Palliative Care Palliative Care/ Comfort Measures: Not Applicable - Core Measures Any of the following diagnoses?: none Exam - Physical Exam Narrative exam: General Apperance: The patient lying in bed, breathing comfortable HEENT: Normocephalic, atraumatic. Pupils equally round and reactive to light, EOMI, no sclericterus or JVD or thyromegaly or nodule. , no carotid bruit, mucous membranes moist, no exudate or erythema Heart: S1-S2, regular is rhythm Lungs: Clear to auscultation bilaterally, breathing comfortable Abdomen: Positive bowel sounds, soft, nontender, nondistended, no organomegaly Extremities:no edema, chronic skin changes Skin: no rash, nodule, warm and dry Neuro: cranial nerves 2-12 intact, speech is fluent, motor/sensory intact - Constitutional Vitals: Temp Pulse Resp BP Pulse Ox 97.5 F L 89 16 132/78 99 11/03/19 13:36 11/03/19 13:49 11/03/19 13:36 11/03/19 13:49 11/03/19 09:00 Plan Activity: advance as tolerated Weight Bearing Status: Weight Bear as Tolerated Diet: diabetic, renal Special Instructions: restrict fluid intake to (1.2L per day) Follow up with: GIBSON IZAGUIRRE MD [Primary Care Provider] - 3-5 Days JEMIMA JARRELL MD [Staff Physician] - 7 Days Prescriptions: Insulin Glargine [Lantus VIAL] 10 units SUB-Q QHS #1 pen AtorvaSTATin [Lipitor] 40 mg PO QHS #30 tablet amLODIPine 10 mg PO QDAY #30 tablet Apixaban [Eliquis] 5 mg PO Q12HR #60 tablet Metoprolol [Lopressor TAB] 75 mg PO BID #90 tablet
--- NOTE | 2019-11-03 15:49 | Progress Note ---
Assessment and Plan New onset atrial fibrillation -We will place on beta-jay, start on heparin drip -Consult cardiology and follow recommendation End-stage renal disease need emergent dialysis - Nephrology consulted, cont to monitor for HD need - need outpt Hd setup, CM notified Volume overload, s/p emergent HD x2 Hyperkalemia, K 6.5 - monitor K level, s/p hyperkalemia cocktail in the ER - level improved after HD Anemia of chronic disease, monitor h/h Elevated troponin/NSTEMI type II due to ESRD - denies any chest pain - - cont aspirin/ statin - preserved EF on 2d echo Hypertension - resumed home meds, monitor BP DM type 2 - consistent carb diet with SSI Morbid obesity- diet and exercise recommendation - dvt Px with heparin - discharge pending on outpt HD setup. Patient also developed atrial fibrillation following dialysis. Start on beta-jay and heparin drip, consult cardiology Subjective Date of service: 11/03/19 Interval history: patient seen and examined vitals noted, converted to atrial fib after HD denies chest pain or SOB CM working on outpt HD setup Objective - Exam Narrative Exam: General Apperance: The patient lying in bed, breathing comfortable HEENT: Normocephalic, atraumatic. Pupils equally round and reactive to light, EOMI, no sclericterus or JVD or thyromegaly or nodule. , no carotid bruit, mucous membranes moist, no exudate or erythema Heart: S1-S2, irregular is rhythm Lungs: Clear to auscultation bilaterally, breathing comfortable Abdomen: Positive bowel sounds, soft, nontender, nondistended, no organomegaly Extremities:no edema, chronic skin changes Skin: no rash, nodule, warm and dry Neuro: cranial nerves 2-12 intact, speech is fluent, motor/sensory intact - Constitutional Vitals: Vital Signs - 12hr 11/03/19 11/03/19 11/03/19 04:10 05:00 08:03 Temperature 98.0 F 97.9 F Pulse Rate 78 78 80 Pulse Rate [ Left Radial] Pulse Rate [ Right Radial] Respiratory 18 18 Rate Blood Pressure 140/50 176/86 O2 Sat by Pulse 96 99 Oximetry 11/03/19 11/03/19 11/03/19 09:00 09:30 09:45 Temperature 97.6 F Pulse Rate 66 67 Pulse Rate [ 98 H Left Radial] Pulse Rate [ 98 H Right Radial] Respiratory 21 16 Rate Blood Pressure 140/70 157/74 O2 Sat by Pulse 99 Oximetry 11/03/19 11/03/19 11/03/19 10:00 10:15 10:45 Temperature Pulse Rate 70 72 73 Pulse Rate [ Left Radial] Pulse Rate [ Right Radial] Respiratory Rate Blood Pressure 160/80 155/81 157/77 O2 Sat by Pulse Oximetry 11/03/19 11/03/19 11/03/19 11:00 11:30 11:45 Temperature Pulse Rate 73 88 96 H Pulse Rate [ Left Radial] Pulse Rate [ Right Radial] Respiratory Rate Blood Pressure 155/80 156/87 145/86 O2 Sat by Pulse Oximetry 11/03/19 11/03/19 11/03/19 12:05 12:15 12:30 Temperature Pulse Rate 92 H 92 H 89 Pulse Rate [ Left Radial] Pulse Rate [ Right Radial] Respiratory Rate Blood Pressure 141/77 161/85 151/78 O2 Sat by Pulse Oximetry 11/03/19 11/03/19 11/03/19 12:45 13:00 13:36 Temperature 97.5 F L Pulse Rate 102 H 89 89 Pulse Rate [ Left Radial] Pulse Rate [ Right Radial] Respiratory 16 Rate Blood Pressure 127/79 152/83 152/83 O2 Sat by Pulse Oximetry 11/03/19 13:49 Temperature Pulse Rate 89 Pulse Rate [ Left Radial] Pulse Rate [ Right Radial] Respiratory Rate Blood Pressure 132/78 O2 Sat by Pulse Oximetry - Labs CBC & Chem 7: 11/03/19 19:19 11/01/19 19:48 Labs: Abnormal lab results 11/02/19 11/02/19 Range/Units 16:04 21:31 POC Glucose 138 H 150 H (70-105) HEART Score - HEART Score Troponin: Troponin T 0.134 ng/mL (0.00-0.029) H* 10/31/19 12:58
[2019-11-03] MEDS: METOPROLOL TARTRATE 50 MG TAB PO SCH ×2 (16:31→21:17)
[2019-11-03] MEDS: HEPARIN/ 0.45% NACL DRIP 25,000 UNIT/500 ML BAG IV SCH (16:32)
[2019-11-03 20:09] LABS: Hemoglobin 9.1 gm/dl (11.8-15.2)
[2019-11-03 20:17] LABS: INR 1.02 (0.87-1.13)
[2019-11-03 20:49] LABS: Partial Thromboplastin Time 107.8 Sec. (24.2-36.6)
[2019-11-03] MEDS: INSULIN GLARGINE 100 UNITS/ML SUB-Q SCH (21:26)
[2019-11-04] MEDS: GABAPENTIN 300 MG CAP PO SCH ×2 (03:20→09:21)
[2019-11-04] MEDS: HEPARIN/ 0.45% NACL DRIP 25,000 UNIT/500 ML BAG IV SCH (08:18)
[2019-11-04] MEDS: INSULIN LISPRO 100 UNIT/ML VIAL 3 mL SUB-Q SCH ×2 (08:22→11:55)
[2019-11-04] MEDS: amLODIPine 10 MG TAB PO SCH (09:21)
[2019-11-04] MEDS: ASPIRIN 81 MG TAB CHEW PO SCH (09:22)
[2019-11-04] MEDS: METOPROLOL TARTRATE 50 MG TAB PO SCH (09:22)
[2019-11-04] MEDS: PANTOPRAZOLE 40 MG TAB PO SCH (09:22)
[2019-11-04] MEDS ORDERED: METOPROLOL TARTRATE 50 MG TAB PO SCH (10:27)
--- NOTE | 2019-11-04 10:32 | Consultation ---
History of Present Illness Consult date: 11/04/19 Requesting physician: DEREK GUTIERREZ Consult reason: atrial fibrillation History of present illness: Patient is 59 years old male with history of end-stage renal disease on hemodialysis, hypertension and diabetes presented to ER for dialysis need. Patient stated that he was recently discharged from [facility] on 10/01/19. Patient stated that he was getting his dialysis over there but since he left the [facility] approximately 3 weeks ago he did not have any regular dialysis. He currently doesnot have any outpt HD set up. He went to other hospitals to get HD interim. . Patient denied any chest pain, fever chills or cough. Patient has a left arm AV fistula. Patient had palpitations 2 weeks ago but denies any palpitations here was called for atrial fibrillation proximal patient goes in and out of atrial fibrillation last 48 hours. Is on heparin therapy and beta- jya therapy. Denies any nausea no vomiting. Patient denies any strokelike symptoms Past History Past Medical History: diabetes, dialysis, hypertension, hyperlipidemia, other (See HPI) Past Surgical History: Other (2 amputations and AV graft) Social history: denies: smoking, alcohol abuse, prescription drug abuse Family history: denies: no significant family history Medications and Allergies Allergies Allergy/AdvReac Type Severity Reaction Status Date / Time No Known Allergies Allergy Verified 09/27/18 15:18 Home Medications Medication Instructions Recorded Confirmed Last Taken Type Cyclobenzaprine [Flexeril 10 MG 10 mg PO QHS PRN #10 tablet 10/08/18 11/03/19 11/01/19 Rx TAB] Epoetin Chidi 20,000 Unit [Procrit] 20,000 unit SUB-Q TETE PRN vial 10/08/18 11/03/19 11/03/19 Rx Gabapentin 300 mg PO Q8H #90 capsule 10/08/18 11/03/19 11/03/19 Rx Pantoprazole [Protonix TAB] 40 mg PO QDAY #30 tablet 10/08/18 11/03/19 Unknown Rx Aspirin [Aspirin BABY CHEW TAB] 81 mg PO QDAY #30 tab.chew 11/03/19 Unknown Rx AtorvaSTATin [Lipitor] 40 mg PO QHS #30 tablet 11/03/19 Unknown Rx Insulin Glargine [Lantus VIAL] 10 units SUB-Q QHS #1 pen 11/03/19 Unknown Rx amLODIPine 10 mg PO QDAY #30 tablet 11/03/19 Unknown Rx Active Meds: Active Medications Acetaminophen/Hydrocodone Bitart ([place] 5/325) 1 each PO Q6HR PRN PRN Reason: PAIN Last Admin: 11/01/19 16:36 Dose: 1 each Documented by: Amlodipine Besylate (Amlodipine) 10 mg PO QDAY [facility] Last Admin: 11/04/19 09:21 Dose: 10 mg Documented by: Apixaban (Eliquis) 5 mg PO Q12HR [facility]; Protocol Aspirin (Baby Aspirin) 81 mg PO QDAY [facility] Last Admin: 11/04/19 09:22 Dose: 81 mg Documented by: Atorvastatin Calcium (Lipitor) 40 mg PO QHS [facility] Last Admin: 11/03/19 21:17 Dose: 40 mg Documented by: Cyclobenzaprine HCl (Flexeril) 10 mg PO QHS PRN PRN Reason: Muscle Spasm Last Admin: 11/01/19 21:12 Dose: 10 mg Documented by: Epoetin Chidi (Procrit) 10,000 unit SUB-Q TETE PRN PRN Reason: hemodialysis Gabapentin (Gabapentin) 300 mg PO Q8H [facility] Last Admin: 11/04/19 09:21 Dose: 300 mg Documented by: Sodium Chloride (Nacl 0.9%) 100 mls @ 999 mls/hr IV TETE PRN PRN Reason: Hypotension Insulin Glargine (Lantus) 10 units SUB-Q QHS [facility] Last Admin: 11/03/19 21:26 Dose: 10 units Documented by: Insulin Human Lispro (Humalog) 0 unit SUB-Q [facility]; Protocol Last Admin: 11/04/19 08:22 Dose: Not Given Documented by: Metoprolol Tartrate (Metoprolol) 75 mg PO BID [facility] Ondansetron HCl (Zofran Odt) 4 mg PO Q8HR PRN PRN Reason: Nausea Pantoprazole Sodium (Protonix) 40 mg PO QDAY [facility] Last Admin: 11/04/19 09:22 Dose: 40 mg Documented by: Review of Systems All systems: negative (as per hpi) Physical Examination Vital Signs Temp Pulse Resp BP Pulse Ox 97.9 F 104 H 24 182/87 100 10/31/19 07:52 10/31/19 07:52 10/31/19 07:52 10/31/19 07:52 10/31/19 07:52 General appearance: no acute distress, well-nourished HEENT: Positive: PERRL, Mucus Membranes Moist Neck: Positive: neck supple, trachea midline Cardiac: Positive: Reg Rate and Rhythm, S1/S2. Negative: Audible Murmur Lungs: Positive: clear to auscultation, Normal Breath Sounds Neuro: Positive: Grossly Intact Abdomen: Positive: Soft, Active Bowel Sounds. Negative: Tender, Distended Male genitourinary: Positive: normal Skin: Positive: Clear Incision: Cardiac Cath Site Musculoskeletal: No Pain, Normal Range of Motion Extremities: Present: normal. Absent: edema Results 11/03/19 19:19 11/01/19 19:48 Coagulation 11/03/19 Range/Units 19:19 PT 13.6 (12.2-14.9) Sec. INR 1.02 (0.87-1.13) APTT 107.8 H* (24.2-36.6) Sec. CBC 11/03/19 Range/Units 19:19 Hgb 9.1 L (11.8-15.2) gm/dl Hct 27.0 L (35.5-45.6) % Plt Count 137 L (140-440) K/mm3 - Imaging and Cardiology Echo: report reviewed (Normal LV function mild left atrial enlargement no significant regurgitation) EKG interpretations - Telemetry EKG Rhythm: Sinus Rhythm (Sinus rhythm nonspecific ST-T's) Assessment and Plan Acute respiratory failure Acute volume overload secondary to noncompliance with dialysis End-stage renal disease on hemodialysis Proximal atrial fibrillation nastemi type 2 Hypertension Diabetes Hyperlipidemia anemia rec: In view of this patient's Chads score of 2 suggest oral anticoagulation Eliquis 5 mg twice a day. Patient beta-jay increased to 75 mg twice a day patient is currently in sinus rhythm. Patient denies any palpitations chest pain or shortness of breath. Has normal LV function echocardiogram. Patient will follow-up as an outpatient for A. fib control patient is being set up for outpatient dialysis may be discharged from a cardiovascular point of view
--- NOTE | 2019-11-04 10:43 | Progress Note ---
Assessment and Plan 1. ESRD: Patient presented to ED after missed 3 weeks of hemodialysis. Currently he is not established with any dialysis unit. Hemodialysis: 10/30, 10/31, 11/02. 2. FEN: Hyperkalemia, improved s/p HD, monitor. Anion-gap metabolic acidosis, improved s/p HD, monitor. Volume overload, improved. Monitor lytes. Renal diet. 3. Anemia: Secondary to ESRD. Epogen. 4. New onset A.fib: On Eliquis. 5. DM type 2: Bl sugar controlled. 6. HTN: Monitor BP. Await outpatient HD chair. Will follow with Marah. D/w - Subjective: Patient was seen and examined at the bedside. Doing ok. Pt wants to go home today. - General Appearance General appearance: well-developed, well-nourished, appears stated age, obese, not in distress HEENT: ATNC, ASHWIN, mucous membrane moist, hearing intact, vision intact Neck: Present: neck supple, trachea midline Respiratory: Clear to Ascultation Heart: S1S2, no murmur Gastrointestinal: soft, normoactive bowel sounds, obese, not tender Integumentary: R foot lateral aspect area of discoloration Neurologic: no focal deficit, no asterixis, alert and oriented x3 Ext: R great toe amputated, trace LE edema noted Hemodialysis access: L arm AVF Psychiatric: cooperative Subjective Date of service: 11/04/19 Objective - Vital Signs Vital signs: Vital Signs - 12hr 11/03/19 11/04/19 11/04/19 23:17 04:45 07:50 Temperature 97.4 F L 97.8 F 98.0 F Pulse Rate 61 61 59 L Respiratory 16 16 18 Rate Blood Pressure 134/66 127/57 144/75 O2 Sat by Pulse 97 94 99 Oximetry 11/04/19 11/04/19 09:21 09:22 Temperature Pulse Rate 60 60 Respiratory Rate Blood Pressure 147/56 147/76 O2 Sat by Pulse Oximetry - Lab 11/03/19 19:19 11/01/19 19:48 Most recent lab results Calcium 7.7 mg/dL (8.4-10.2) L 11/01/19 19:48 Medications & Allergies - Medications Allergies/Adverse Reactions: Allergies No Known Allergies Allergy (Verified 09/27/18 15:18) Home Medications: Home Medications Medication Instructions Recorded Confirmed Last Taken Type Cyclobenzaprine [Flexeril 10 MG 10 mg PO QHS PRN #10 tablet 10/08/18 11/03/19 11/01/19 Rx TAB] Epoetin Chidi 20,000 Unit [Procrit] 20,000 unit SUB-Q TETE PRN vial 10/08/18 11/03/19 11/03/19 Rx Gabapentin 300 mg PO Q8H #90 capsule 10/08/18 11/03/19 11/03/19 Rx Pantoprazole [Protonix TAB] 40 mg PO QDAY #30 tablet 10/08/18 11/03/19 Unknown Rx AtorvaSTATin [Lipitor] 40 mg PO QHS #30 tablet 11/03/19 Unknown Rx Insulin Glargine [Lantus VIAL] 10 units SUB-Q QHS #1 pen 11/03/19 Unknown Rx amLODIPine 10 mg PO QDAY #30 tablet 11/03/19 Unknown Rx Apixaban [Eliquis] 5 mg PO Q12HR #60 tablet 11/04/19 Unknown Rx Metoprolol [Lopressor TAB] 75 mg PO BID #90 tablet 11/04/19 Unknown Rx Active Medications: Generic Name Dose Route Start Last Admin Trade Name Freq PRN Reason Stop Dose Admin Acetaminophen/Hydrocodone Bitart 1 each 10/31/19 15:42 11/01/19 16:36 [place] 5/325 PO 1 each Q6HR PRN Administration PAIN Amlodipine Besylate 10 mg 11/01/19 16:00 11/04/19 09:21 Amlodipine PO 10 mg QDAY GILLIAN Administration Apixaban 5 mg 11/04/19 11:00 Eliquis PO Q12HR [facility] Protocol Aspirin 81 mg 11/01/19 16:00 11/04/19 09:22 Baby Aspirin PO 81 mg QDAY GILLIAN Administration Atorvastatin Calcium 40 mg 11/01/19 22:00 11/03/19 21:17 Lipitor PO 40 mg QHS [facility] Administration Cyclobenzaprine HCl 10 mg 10/31/19 15:42 11/01/19 21:12 Flexeril PO 10 mg QHS PRN Administration Muscle Spasm Epoetin Chidi 10,000 unit 10/31/19 11:59 Procrit SUB-Q TETE PRN hemodialysis Gabapentin 300 mg 11/01/19 02:00 11/04/19 09:21 Gabapentin PO 300 mg Q8H GILLIAN Administration Sodium Chloride 100 mls @ 999 mls/hr 11/01/19 06:58 Nacl 0.9% IV TETE PRN Hypotension Insulin Glargine 10 units 10/31/19 22:00 11/03/19 21:26 Lantus SUB-Q 10 units QHS GILLIAN Administration Insulin Human Lispro 0 unit 10/31/19 22:00 11/04/19 08:22 Humalog SUB-Q Not Given ACHS [facility] Protocol Metoprolol Tartrate 75 mg 11/04/19 22:00 Metoprolol PO BID [facility] Ondansetron HCl 4 mg 10/31/19 15:42 Zofran Odt PO Q8HR PRN Nausea Pantoprazole Sodium 40 mg 11/01/19 10:00 11/04/19 09:22 Protonix PO 40 mg QDAY GILLIAN Administration
[2019-11-04] MEDS ORDERED: APIXABAN 5 MG TAB PO SCH (11:00)
[2019-11-04] MEDS ORDERED: METOPROLOL TARTRATE 25 MG TAB PO SCH ×2 (11:00→22:00)
[2019-11-04 11:50] VITALS: BP 136/71
== END 2019-11-04 13:46 | disposition home or self-care (01) | DRG 640 ==
LOC: ED 07:45 → 4A 12:21 → OBSVTOIN 11-01 14:28
PROVIDERS: ADMIT Internal Medicine; ATTEND Internal Medicine
PROC: 5A1D70Z Performance of Urinary Filtration, Intermittent, Less than 6 Hours Per Day (ICD-10-PCS; 2019-10-31)
PROC: 5A1D70Z Performance of Urinary Filtration, Intermittent, Less than 6 Hours Per Day (ICD-10-PCS; principal; 2019-11-01)
PROC: 5A1D70Z Performance of Urinary Filtration, Intermittent, Less than 6 Hours Per Day (ICD-10-PCS; 2019-11-03)
DX: E87.70 Fluid overload, unspecified (principal); I21.A1 Myocardial infarction type 2; N18.6 End stage renal disease; J96.00 Acute respiratory failure, unspecified whether with hypoxia or hypercapnia; I12.0 Hypertensive chronic kidney disease with stage 5 chronic kidney disease or end stage renal disease; E87.2 Acidosis; E87.5 Hyperkalemia; E11.22 Type 2 diabetes mellitus with diabetic chronic kidney disease; I48.91 Unspecified atrial fibrillation; D63.1 Anemia in chronic kidney disease; E66.01 Morbid (severe) obesity due to excess calories; Z99.2 Dependence on renal dialysis; Z79.4 Long term (current) use of insulin; Z90.49 Acquired absence of other specified parts of digestive tract; Z82.49 Family history of ischemic heart disease and other diseases of the circulatory system; Z68.37 Body mass index [BMI] 37.0-37.9, adult; Z71.3 Dietary counseling and surveillance; E78.5 Hyperlipidemia, unspecified
CPT/HCPCS: 36415; 71046; 80048; 80061; 80074; 82962; 84484; 85014; 85018; 85025; 85049; 85520; 85610; 85730; 93005; 93306; G0378; A9270-GY; J1644; J1815; U0003-CS

== ENCOUNTER 2020-11-11 09:55 | Day surgery (SDC) | payer MEDICARE ==
[~2020-11-11 09:55] MED LIST: SODIUM CHLORIDE 0.9% 1000 ML 1,000 ML IV SCH; ceFAZolin/STERILE WATER 2 GM/20 ML SYRINGE IV NR
--- NOTE | 2020-11-11 11:15 | Anesthesia Consultation ---
Anesthesia Consult and Med Hx Date of service: 11/11/20 - Airway Anesthetic Teeth Evaluation: Good, Partials (upper) ROM Head & Neck: Adequate Mental/Hyoid Distance: Adequate Mallampati Class: Class III Intubation Access Assessment: Possibly Difficult - Pulmonary Exam CTA: Yes - Cardiac Exam Cardiac Exam: No Murmur (irregular rhythm) - Pre-Operative Health Status ASA Pre-Surgery Classification: ASA3 Proposed Anesthetic Plan: General - Pulmonary Hx Smoking: No Hx Respiratory Symptoms: No - Cardiovascular System Hx Hypertension: Yes Hx Heart Attack/AMI: No (>4mets functional capacity) Hx Percutaneous Transluminal Coronary Angioplasty (PTCA): No Hx Cardia Arrhythmia: Yes (a-fib) Hx Pacemaker: No Hx Internal Defibrillator: No - Central Nervous System CVA: No - Endocrine Hx End Stage Renal Disease: Yes (last HD 11/10/20) Hx Liver Disease: No Hx Insulin Dependent Diabetes: Yes Hx Thyroid Disease: No - Other Systems Hx Obesity: Yes (BMI 35) - Additional Comments Anesthesia Medical History Comments: No hx anesthetic complications.
--- NOTE | 2020-11-11 11:16 | Anesthesia Day of Surgery ---
Anesthesia Day of Surgery - Day of Surgery Patient Examined: Yes Patient H&P Reviewed: Yes Patient is NPO: Yes Beta Blockers: Yes (home dose metoprolol to be given in preop)
[2020-11-11] MEDS ORDERED: fentaNYL 100 MCG/2 ML INJ IV PRN (11:30)
[2020-11-11] MEDS ORDERED: ONDANSETRON 4 MG/2 ML INJ IV PRN (11:30)
[2020-11-11 11:46] LABS: Hematocrit 25.3 % (35.5-45.6); Hemoglobin 7.9 gm/dl (11.8-15.2); Mean Corpuscular HGB Conc 31 % (32-34); Mean Corpuscular Volume 92 fl (84-94); Platelet Count 243 K/mm3 (140-440); Red Blood Count 2.74 M/mm3 (3.65-5.03); Red Cell Distribution Width 17.3 % (13.2-15.2)
[2020-11-11 11:59] LABS: Calcium 8.8 mg/dL (8.4-10.2)
[2020-11-11] MEDS ORDERED: METOPROLOL TARTRATE 25 MG TAB PO SCH (12:00)
[2020-11-11] MEDS ORDERED: METOPROLOL TARTRATE 50 MG TAB PO SCH (12:00)
[2020-11-11] MEDS ORDERED: rifAMPin 600 MG VIAL ONE ×2 (12:25→13:32)
[2020-11-11] MEDS ORDERED: HEPARIN 10,000 UNITS/10 ML VIAL ONE (12:25)
[2020-11-11] MEDS ORDERED: BUPIVACAINE/PF (0.5%) 5 MG/1 ML 10 ML VIAL INFILTRATI ONE (12:25)
[2020-11-11] MEDS ORDERED: SODIUM CHLORIDE 0.9% 500 ML 500 ML ONE (12:26)
[2020-11-11] MEDS ORDERED: fentaNYL 100 MCG/2 ML INJ ONE (12:29)
[2020-11-11] MEDS ORDERED: propofoL 200 MG/20 ML VIAL IV ONE (12:29)
[2020-11-11] MEDS ORDERED: BUPIVACAINE/PF (0.5%) 5 MG/1 ML 30 ML VIAL INFILTRATI ONE (12:37)
[2020-11-11] MEDS ORDERED: LIDOCAINE (1%) 10 MG/1 ML VIAL 20 ML MDV ONE (12:37)
[2020-11-11] MEDS ORDERED: ePHEDrine SULFATE 50 MG/1 ML INJ ONE ×2 (13:14→14:40)
[2020-11-11] MEDS ORDERED: LIDOCAINE PF 100 MG/5 ML (CARDIAC SYRINGE) IV ONE (13:14)
[2020-11-11] MEDS ORDERED: SODIUM CHLORIDE P/F VIAL 10 ML 10 ML ONE (13:32)
[2020-11-11] MEDS ORDERED: SODIUM CHLORIDE 0.9% IRR 1,500 ML BOTTLE IR ONE (13:34)
[2020-11-11] MEDS ORDERED: SODIUM CHLORIDE 0.9% 500 ML IVPB IV ONE (13:34)
[2020-11-11] MEDS ORDERED: HEPARIN 10,000 UNITS/10 ML VIAL IV ONE (13:34)
[2020-11-11] MEDS ORDERED: rifAMPin 600 MG VIAL IV ONE (13:34)
[2020-11-11] MEDS ORDERED: SODIUM CHLORIDE 0.9% P/F 10 ML VIAL IV ONE (13:34)
[2020-11-11] MEDS ORDERED: dexAMETHasone 20 MG/5 ML VIAL ONE (14:30)
--- NOTE | 2020-11-11 15:32 | Short Stay Summary ---
Short Stay Documentation Date of service: 11/11/20 Narrative H&P: See H&P - History H&P: obtained from office - Allergies and Medications Current Medications: Allergies sulfamethoxazole [From Bactrim] Adverse Reaction (Verified 11/11/20 12:54) Nausea trimethoprim [From Bactrim] Adverse Reaction (Verified 11/11/20 12:54) Nausea Home Medications Medication Instructions Recorded Confirmed Last Taken Type Cyclobenzaprine [Flexeril 10 MG 10 mg PO QHS PRN #10 tablet 10/08/18 11/03/20 11/01/19 Rx TAB] Epoetin Chidi 20,000 Unit [Procrit] 20,000 unit SUB-Q TETE PRN vial 10/08/18 11/03/20 11/03/19 Rx Gabapentin 300 mg PO Q8H #90 capsule 10/08/18 11/11/20 11/10/20 19:00 Rx Pantoprazole [Protonix TAB] 40 mg PO QDAY #30 tablet 10/08/18 11/11/20 11/10/20 09:00 Rx AtorvaSTATin [Lipitor] 40 mg PO QHS #30 tablet 11/03/19 11/11/20 11/10/20 19:00 Rx amLODIPine 10 mg PO QDAY #30 tablet 11/03/19 11/11/20 11/10/20 09:00 Rx Apixaban [Eliquis] 5 mg PO Q12HR #60 tablet 11/04/19 11/11/20 11/10/20 19:00 Rx Metoprolol [Lopressor TAB] 75 mg PO BID #90 tablet 11/04/19 11/11/20 11/11/20 12:01 Rx Insulin Aspart Prot/Insuln Asp 13 unit SQ BID 11/03/20 11/03/20 Unknown History [Insulin Aspart Prot-Insuln Asp] Active Medications Fentanyl (Fentanyl 100 Mcg/2 Ml Inj) 50 mcg IV Q5MIN PRN PRN Reason: Pain , Severe (7-10) Stop: 11/11/20 17:00 Sodium Chloride (Nacl 0.9% 1000 Ml) 1,000 mls @ 42 mls/hr IV DIRECT GILLIAN Stop: 11/11/20 23:59 Last Admin: 11/11/20 11:50 Dose: 42 mls/hr Documented by: Metoprolol Tartrate (Metoprolol Tartrate 25 Mg Tab) 75 mg PO ONCE GILLIAN Stop: 11/11/20 17:00 Last Admin: 11/11/20 12:04 Dose: 75 mg Documented by: Ondansetron HCl (Ondansetron 4 Mg/2 Ml Inj) 4 mg IV ONCE PRN PRN Reason: Nausea And Vomiting Stop: 11/11/20 17:00 - Brief post op/procedure progress note Date of procedure: 11/11/20 Pre-op diagnosis: Complications of Dialysis Access Post-op diagnosis: same Procedure: 1. Revision of Left Arm Arteriovenous Fistula with Open Thrombectomy with 6 Lupe, Excision of Pseudoaneurysms, and Interposition 7 mm Bovine Artegraft Anesthesia: GETA Surgeon: KOKI CLARKE Estimated blood loss: 50-100ml Pathology: list (Left arm AV fistula pseudoaneurysms were sent to pathology) Condition: stable - Disposition Condition at discharge: Good Disposition: 01 HOME / SELF CARE / HOMELESS Short Stay Discharge Plan Activity: other (No heavy lifting with left arm for 2 weeks.) Wound: open to air, keep clean and dry, other (Okay to wash the left arm wounds with soap and water but do not soak in water for 2 weeks.) Follow up with: KOKI CLARKE MD [Staff Physician] - 14 Days Prescriptions: HYDROcodone/APAP 7.5-325 [[place] 7.5/325] 1 each PO Q6HR PRN #40 tablet PRN Reason: Pain
[2020-11-11] MEDS ORDERED: PHENYLEPHRINE/NS 1,000 MCG/10 ML SYRINGE (OR USE) IV ONE (15:34)
--- NOTE | 2020-11-11 15:41 | Operative Report ---
Operative Report Operative Report: Date of Procedure: 11/11/2020 Pre-operative Diagnosis: Complications of Dialysis Access Post-operative Diagnosis: Same Procedure(s): 1. Revision of Left Arm Arteriovenous Fistula with Open Thrombectomy with 6 Lupe, Excision of Pseudoaneurysms, and Interposition 7 mm Bovine Artegraft Surgeon: Kris Guevara M.D. Pollution Control Engineer: None Anesthesia: General Endotracheal Anesthesia EBL: 100 mL Counts: Correct Complications: None Condition: Stable Findings: Successful revision of left arm AV fistula with palpable thrill and palpable radial pulse at the completion of the case. Specimen: Left arm AV fistula pseudoaneurysms were sent to pathology. Indication: The patient is a 60-year-old male with a history of end-stage renal disease who had a thrombosed left arm AV fistula which required insertion of a right internal jugular permacath. He is in need of long-term dialysis access. There was a palpable pulse within the arterial inflow of the fistula so decision was made to revise his fistula and use the arterial inflow as the inflow for an interposition graft. He was given the risk, benefits, and alternative procedures and consented to the procedure. Description of Procedure: The patient was brought to the operating room and laid in supine position. After timeout was performed his left arm was prepped and draped in normal sterile fashion. A longitudinal incision was created over the 2 areas of pseudoaneurysm in the cannulation zone of the graft and carried down to the graft using sharp dissection with curved Mayos. The incision was extended to the normal portion of the arterial inflow of the fistula and curved Mayos were used to circumferentially dissect around the arterial inflow of the fistula and this was controlled with a vessel loop. I then dissected around the venous outflow of the fistula in the upper arm and dissected this circumferentially controlled with Vesseloops. I dissected the pseudoaneurysm circumferentially and then transected the fistula at the transition to the normal portion near the venous outflow. I passed a 6 Lupe through the cephalic arch and made multiple passes retrieving thrombus however there was never any venous backflow so I ligated the cephalic vein with a 2-0 silk tie. I then transected the pseudoaneurysm from the normal portion of the arterial inflow the graft which was also thrombosed. I passed a 6 Lupe into the arterial inflow of the fistula and made several passes until a large plug was removed and there was audible bleeding from the inflow. I clamped the arterial inflow of the fistula with a DeBakey clamp and then made a longitudinal incision on the medial aspect the arm just distal to the axillary crease. I carried this down to the axillary vein using sharp dissection. I dissected the axillary vein circumferentially and then controlled with a vessel loop. I then used a Myrna-Wick tunneler to tunnel along the lateral aspect of the arm incision towards the axillary incision and then pulled a 7 mm Bovine Artegraft, that had been soaked in rifampin, back through the tunnel. I infused with heparinized saline to ensure that the graft had not been kinked or twisted. I then beveled the end of the graft as well as the arterial inflow of the fistula and heparinized the patient with 3000 units of heparin IV. I then created an end-to-end anastomosis between the graft and the fistula using two 5-0 Prolene's in running fashion. I then clamped the graft just distal to the anastomosis and removed the clamp on the fistula to ensure that there was hemostasis at the incision. I then cut the venous outflow into the graft to length and beveled the end. I used a Satinsky clamp to control the flow within the axillary vein and created a venotomy using an 11 blade and Trevizo scissors. I created an end-to-side anastomosis using a 6- 0 Prolene in running fashion. Prior to completing the anastomosis I flashed the vein as well as the graft and then reclamped both. I completed the anastomosis then remove the clamps allowing flow through the graft which had a palpable thrill. The patient also maintained a palpable radial pulse. Hemostasis in the axillary wound was achieved with direct pressure. Hemostasis within the arm was achieved with quick clot. Once hemostasis was achieved within the wounds I trimmed the redundant skin within the arm wound and closed in 2 layers using a 3-0 Vicryl running fashion the deep dermal layer and a 4-0 Monocryl in running fashion the subcuticular layer and then dressed with Dermabond. I closed the axillary wound with 3-0 Vicryl in a running fashion the deep dermal layer and a 4-0 Monocryl in running fashion the subcuticular layer and then dressed with Dermabond. The patient tolerated the procedure well. All sponge, needle, and instrument counts were correct. The patient was taken to the recovery area in stable condition.
[2020-11-11] MEDS ORDERED: HYDROcodone/ACETAMINOPHEN 7.5-325MG TAB ONE (16:15)
--- NOTE | 2020-11-11 18:14 | Post Anesthesia Evaluation ---
- Post Anesthesia Evaluation Patient Participated: Yes Airway Patent: Yes Stable Respiratory Function: Yes Nausea/Vomiting: No Temp > 96.8F: Yes Pain Manageable: Yes Adequeate Hydration: Yes Anesthesia Complications: No
[2020-11-11 18:58] VITALS: BP 124/64
[2020-11-11] MEDS ORDERED: HYDROcodone/ACETAMINOPHEN 7.5-325MG TAB PO ONE (19:07)
== END 2020-11-11 09:56 | disposition home or self-care (01) ==
LOC: OR 09:55
PROVIDERS: ATTEND Surgery Vascular Surgery
DX: I12.0 Hypertensive chronic kidney disease with stage 5 chronic kidney disease or end stage renal disease (principal); N18.6 End stage renal disease; I48.91 Unspecified atrial fibrillation; E11.22 Type 2 diabetes mellitus with diabetic chronic kidney disease; E78.00 Pure hypercholesterolemia, unspecified; K21.9 Gastro-esophageal reflux disease without esophagitis; E66.9 Obesity, unspecified; E78.5 Hyperlipidemia, unspecified; Z99.2 Dependence on renal dialysis; Z79.899 Other long term (current) drug therapy; Z79.4 Long term (current) use of insulin; Z90.49 Acquired absence of other specified parts of digestive tract; Z98.890 Other specified postprocedural states; Z88.2 Allergy status to sulfonamides; Z88.8 Allergy status to other drugs, medicaments and biological substances; Z68.35 Body mass index [BMI] 35.0-35.9, adult
CPT/HCPCS: 36415; 36833; 80048; 82962; 85027; 86850; 86900; 86901; 88304; C1757; C1768; J0690; J1100; J1644; J2001; J2370; J2704; J3010; J3490; J7030; J7040